=== PATIENT | male | born 1970 | race Caucasian/White ===

== ENCOUNTER 2016-04-21 00:30 | Emergency (ER) | payer OTHER ==
[~2016-04-21] VITALS: Ht 190.5 cm; Wt 92.0 kg
[~2016-04-21 00:30] MED LIST: ASPI-390 PO; BACL10TA PO; HYDR-5688 PO; MORP15TA PO; MORP15TA19 PO; MULT-506 PO; POLY335019 PO; PREG1CAP28 PO; PREG75CA PO; RIZA10TA18 PO; SERT-234 PO
[2016-04-21 00:41] VITALS: TEMP 36.9; Ht 190.5 cm; Wt 92.0 kg
[2016-04-21] MEDS ORDERED: LIDOCAINE HCL 2% VISC SOLN 20 ML UDC PO STA (00:58)
[2016-04-21] MEDS ORDERED: ALUMINUM/MAGNESIUM SUSP 30 ML UDC PO STA (00:58)
[2016-04-21 01:13] VITALS: O2SAT 100
[2016-04-21 01:24] LABS: BASO % 0.7 %; BASO ABS # 0.07 K/uL (0-0.2); COMPLETE YES; EOS % 5.3 %; HEMATOCRIT 43.9 % (42-52); IG% 0.2 %; LYMPH % 35.3 %; LYMPH ABS # 3.61 K/uL (1.2-3.4); MEAN CELL VOLUME 89.8 fL (80-100); MEAN CORPUSCULAR HEMOGLOBIN 31.1 pg (25-34); MEAN CORPUSCULAR HGB CONC 34.6 g/dl (32-36); MEAN PLATELET VOLUME 11.4 fL (7.4-10.4); MONO % 6.4 %; NEUT % 52.1 %; PLATELET COUNT 325 K/uL (130-400); RED BLOOD COUNT 4.89 M/uL (4.7-6.1); WHITE BLOOD COUNT 10.22 K/uL (4.8-10.8)
[2016-04-21 01:41] LABS: ALT/SGPT 28 U/L (12-78); AST/SGOT 15 U/L (15-37); BLOOD UREA NITROGEN 19 mg/dl (7-18); BUN/CREATININE RATIO 17.2 (10-20); CALCIUM 8.8 mg/dl (8.5-10.1); CARBON DIOXIDE 25 mmol/L (21-32); CHLORIDE 110 mmol/L (98-107); GLUCOSE 98 mg/dl (70-99); POTASSIUM 3.9 mmol/L (3.5-5.1); SODIUM 144 mmol/L (136-145)
[2016-04-21 01:46] LABS: ALKALINE PHOSPHATASE 78 U/L (45-117)
[2016-04-21] MEDS ORDERED: PANT40TA PO (03:42)
[2016-04-21] MEDS ORDERED: MAGNESIUM CITRATE 296 ML/BTL PO ONE (03:45)
--- NOTE | 2016-04-21 03:57 | EMERGENCY ROOM VISIT NOTE ---
History First contact with patient: 00:51 Chief Complaint: ABDOMINAL PAIN Stated Complaint: STOMACH/ABDOMINAL PAIN X 4WKS - MUCH WORSE NOW Nursing Triage Summary: Pt states he is on narcotics for back pain. Pt takes Miralax for regular bm's. Pt states that since he hasn't been going regular and he upped his Miralax. Pt states he now has upper abd pain with liquid bm's. [facility]. Pt states pain was not bad at that time and tonight it got more severe. History of Present Illness The patient is a 46 year old male who presents to the Emergency Room with complaints of epigastric discomfort for the past month described as aching, ranging in severity currently 5 out of 10. Patient tried Zantac with no improvement of symptoms. He has a history of constipation. He's been taking MiraLAX. He takes chronic narcotics for his back pain. Patient denies chest pain, dyspnea, fever, chills, nausea, vomiting, diarrhea, black or blood in the stool. Review of Systems See HPI for pertinent positives & negatives. A total of 10 systems reviewed and were otherwise negative. Past Medical/Surgical History Medical Problems: (1) Lumbar postlaminectomy syndrome Social History Smoking Status: Former Smoker Alcohol Use: occasionally Marital Status: single Housing Status: lives alone Occupation Status: disabled Current/Historical Medications Scheduled Baclofen (Lioresal), 10 MG PO BID Morphine Cont Rel (Ms Contin), 30 MG PO QAM Morphine Sulfate Ir (Morphine Sulfate Ir), 1.5 TABS PO QPM Multivitamin (Multivitamin), 1 TAB PO QAM Pantoprazole (Protonix), 40 MG PO DAILY Polyethylene Glycol 3350 (Miralax), 17 GM PO NOON Pregabalin (Lyrica), 75 MG PO QAM/NOON Pregabalin (Lyrica), 150 MG PO QPM Sertraline (Zoloft), 150 MG PO QAM Scheduled PRN Pomfnln-Vlzjefxcfqjqe-Xrytmoxk (Excedrin Migraine), 2 TABS PO UD PRN for Migraine Rizatriptan Benzoate (Maxalt), 10 MG PO for Migraine Allergies Coded Allergies: Prochlorperazine (Verified Allergy, Unknown, twitchy/ skin crawling, ) [place] (Verified Allergy, Unknown, SPLOTCHY RASH ON FACE, 04/21/16) Physical Exam Vital Signs Date Time Temp Pulse Resp B/P Pulse Ox O2 Delivery O2 Flow Rate FiO2 04/21/16 02:30 67 18 131/58 98 Room Air 04/21/16 01:15 74 04/21/16 01:13 100 Room Air 04/21/16 01:09 100 Room Air 04/21/16 00:41 36.9 80 18 145/89 98 Room Air Physical Exam VITALS: Vitals are noted on the nurse's note and reviewed by myself. Vital signs stable. GENERAL: Pleasant male, in no acute distress, nondiaphoretic, well-developed well-nourished. SKIN: The skin was without rashes, erythema, edema, or bruising. There is no tenting of the skin. Capillary reflex less than 2 seconds. HEAD: Normocephalic atraumatic. EARS: External auditory canals clear, tympanic membranes pearly aparicio without erythema or effusion bilaterally. EYES: Pupils equal round and reactive to light and accommodation. Conjunctivae without injection, sclerae without icterus. Extraocular movements intact. NOSE: Patent, turbinates without inflammation or discharge. MOUTH: Mucous membranes moist. Pharynx without erythema or exudate. Uvula midline. Airway patent. Tongue does not deviate. NECK: Supple without nuchal rigidity. No lymphadenopathy. No thyromegaly. Cervical spine is nontender. No JVD. HEART: Regular rate and rhythm without murmurs gallops or rubs. LUNGS: Clear to auscultation bilaterally without wheezes, rales or rhonchi. No dullness to percussion. No retractions or accessory muscle use. ABDOMEN: Positive bowel sounds x 4. Normal tympanic percussion. Soft, minimally tender to palpation epigastric area, no CVA tenderness, without masses or organomegaly. Larose sign negative. No guarding or rebound tenderness. MUSCULOSKELETAL: No muscle atrophy, erythema, or edema noted. NEURO: Patient was alert and oriented to person place and time. Normal sensation to light and sharp touch. No focal neurological deficits. Medical Decision & Procedures Laboratory Results 04/21/16 01:09 Red Blood Count 4.89, Mean Corpuscular Volume 89.8, Mean Corpuscular Hemoglobin 31.1, Mean Corpuscular Hemoglobin Concent 34.6, Mean Platelet Volume 11.4, Neutrophils (%) (Auto) 52.1, Lymphocytes (%) (Auto) 35.3, Monocytes (%) (Auto) 6.4, Eosinophils (%) (Auto) 5.3, Basophils (%) (Auto) 0.7, Neutrophils # (Auto) 5.33, Lymphocytes # (Auto) 3.61, Monocytes # (Auto) 0.65, Eosinophils # (Auto) 0.54, Basophils # (Auto) 0.07 04/21/16 01:09 Test 04/21/16 01:09 White Blood Count 10.22 K/uL (4.8-10.8) Red Blood Count 4.89 M/uL (4.7-6.1) Hemoglobin 15.2 g/dL (14.0-18.0) Hematocrit 43.9 % (42-52) Mean Corpuscular Volume 89.8 fL (80-100) Mean Corpuscular Hemoglobin 31.1 pg (25-34) Mean Corpuscular Hemoglobin Concent 34.6 g/dl (32-36) Platelet Count 325 K/uL (130-400) Mean Platelet Volume 11.4 fL (7.4-10.4) Neutrophils (%) (Auto) 52.1 % Lymphocytes (%) (Auto) 35.3 % Monocytes (%) (Auto) 6.4 % Eosinophils (%) (Auto) 5.3 % Basophils (%) (Auto) 0.7 % Neutrophils # (Auto) 5.33 K/uL (1.4-6.5) Lymphocytes # (Auto) 3.61 K/uL (1.2-3.4) Monocytes # (Auto) 0.65 K/uL (0.11-0.59) Eosinophils # (Auto) 0.54 K/uL (0-0.5) Basophils # (Auto) 0.07 K/uL (0-0.2) RDW Standard Deviation 46.9 fL (36.4-46.3) RDW Coefficient of Variation 14.2 % (11.5-14.5) Immature Granulocyte % (Auto) 0.2 % Immature Granulocyte # (Auto) 0.02 K/uL (0.00-0.02) Anion Gap 9.0 mmol/L (3-11) Est Creatinine Clear Calc Drug Dose 100.3 ml/min Estimated GFR () 92.8 Estimated GFR (Non- 80.1 BUN/Creatinine Ratio 17.2 (10-20) Calcium Level 8.8 mg/dl (8.5-10.1) Total Bilirubin 0.3 mg/dl (0.2-1) Direct Bilirubin < 0.1 mg/dl (0-0.2) Aspartate Amino Transf (AST/SGOT) 15 U/L (15-37) Alanine Aminotransferase (ALT/SGPT) 28 U/L (12-78) Alkaline Phosphatase 78 U/L (45-117) Total Creatine Kinase 74 U/L (39-308) Creatine Kinase MB < 0.5 ng/ml (0.5-3.6) Creatine Kinase MB Ratio (0-3.0) Troponin I < 0.015 ng/ml (0-0.045) Total Protein 7.8 gm/dl (6.4-8.2) Albumin 4.1 gm/dl (3.4-5.0) Lipase 162 U/L (73-393) Medications Administered Medications (Trade) Dose Ordered Sig/Ezekiel Route Start Time Stop Time Status Last Admin Dose Admin Lidocaine HCl (Viscous Lidocaine 2% Soln) 10 ml NOW STAT PO 04/21/16 00:58 04/21/16 01:00 DC 04/21/16 01:09 10 ML Al Hydroxide/Mg Hydroxide (Maalox Susp) 30 ml NOW STAT PO 04/21/16 00:58 04/21/16 01:00 DC 04/21/16 00:58 30 ML ED Course Prior records/ancillary studies reviewed. Triage Nursing notes reviewed. The patient's history was concerning for abdominal pain. Differential diagnosis: Etiologies such as appendicitis, diverticulitis, PUD, biliary pathology, UTI, pancreatitis, obstruction, mesenteric ischemia, aortic pathology, infections, inflammatory bowel disease, renal colic, as well as others were entertained. Physical examination findings: As above. ER treatment provided: GI cocktail On reassessment the patient felt better. Diagnostics interpreted by me: ECG: Normal sinus, normal intervals, no acute ST-T wave changes. Impression normal sinus rhythm interpreted by myself The labs revealed no worrisome leukocytosis or electrolyte abnormality. Negative troponin Imaging studies: Zofran was read by stat radiology negative for cholecystitis Acute abdominal series with no free air or consolidation or obstruction. Per my interpretation.. Exam and history seem consistent with possible gastritis and constipation. Patient was started on a PPI. He was advised to take magnesium citrate. [facility] and workup for his ongoing symptoms that have been ongoing for a month now. She had no lower abdominal pain on exam. He was well-appearing. He was tolerating by mouth fluids and ambulated without difficulties. He was advised to return to the ER immediately for abdominal pain, fevers, vomiting, worsening signs or symptoms or as needed.By the evaluation outlined above emergent etiologies such as appendicitis, diverticulitis, PUD, biliary pathology, UTI, pancreatitis, obstruction, mesenteric ischemia, aortic pathology, infections, inflammatory bowel disease, renal colic, as well as others were deemed relatively unlikely. The pt informed about the findings as listed above. All questions were answered and pleased with the treatment. Return instructions were outlined and the patient was discharged in stable condition. Outpatient prescription management: Protonix Referral: The patient was referred back to their primary care physician for follow-up in 2 to 3 days for a recheck of the current condition. Case reviewed with my attending Medical Decision As above Impression Primary Impression: Epigastric discomfort Additional Impression: Constipation Departure Information Dispostion Home / Self-Care Condition GOOD Prescriptions Pantoprazole (Protonix) 40 Mg Tab 40 MG PO DAILY for 14 Days, #14 TAB Prov: Blanka Magallanes .SERGEI 04/21/16 Forms Call Back Authorization, HOME CARE DOCUMENTATION FORM, IMPORTANT VISIT INFORMATION Patient Instructions Constipation, My [facility] Additional Instructions Magnesium citrate: Drink half the bottle when you get home, if you do not have a bowel movement within 6 hours then drink the rest. Stay near a toilet. Protonix 40 mg: Take one tablet daily for the next 2 weeks on an empty stomach. Acetaminophen(Tylenol) may be used for fever or pain. Use 1000mg every six hours as needed. Avoid using more than 3000mg in a 24 hour period. Rest and drink plenty of fluids as tolerated. Continue current medications. Avoid strenuous activities and anything that worsens your pain. Resume normal activities once your symptoms resolve. Return to the ER immediately for worsening or persistent abdominal pain, vomiting, fevers, chest pains, difficulty breathing, worsening of your condition , or as needed. Follow up with your primary physician in 2-3 days for a recheck of your current condition. Problem Qualifiers
[2016-04-21 04:05] VITALS: BP 122/60; PULSE 90; O2SAT 98
--- NOTE | 2016-04-21 07:44 | DIAGNOSTIC IMAGING REPORT ---
ABDOMINAL ULTRASOUND, RIGHT UPPER QUADRANT HISTORY: Epigastric pain.. COMPARISON: Abdomen and pelvis CT 05/29/2011. FINDINGS: Pancreas: The pancreatic tail is obscured by overlying bowel gas. The remaining portions of the pancreas are within normal limits. Liver: There is an 8 mm echogenic focus within the right hepatic dome. This favors a hemangioma but is technically indeterminate by ultrasound. The liver is mildly enlarged measuring 19 cm in length. Mild intrahepatic bile duct dilatation. Gallbladder: No gallbladder wall thickening. No gallstones. CBD: 7 mm in diameter. Right kidney: No hydronephrosis. There is a 6 mm stone within the lower pole. IMPRESSION: 1. Normal gallbladder. No gallstones. 2. Right-sided nephrolithiasis. No hydronephrosis. 3. An 8 mm echogenic focus within the right hepatic dome. This is technically indeterminate by ultrasound but favors a small hemangioma. 4. Hepatomegaly. 5. Mild intra and extra hepatic bile duct dilatation. Recommend correlation with LFTs to exclude an obstructive process. Electronically signed by: Cuco Patel M.D. 04/21/2016 7:42 AM Dictated Date/Time: 04/21/2016 7:38 AM
--- NOTE | 2016-04-21 08:12 | DIAGNOSTIC IMAGING REPORT ---
CHEST AND ABDOMEN 2 VIEWS HISTORY: Generalized abdominal pain. Small bowel obstruction. COMPARISON: Abdomen and pelvis CT 05/29/2011. FINDINGS: The lungs are clear. The cardiomediastinal silhouette is within normal limits. There is no pneumoperitoneum or pneumatosis. The bowel gas pattern is unremarkable. No evidence for bowel obstruction. Posterior fusion and decompression from L2 through S1. There is an 8 mm stone within the lower pole of the right kidney. No ureteral calculi. Large amount of well-formed stool seen throughout the colon and rectum. IMPRESSION: 1. No acute process within the chest. 2. Large amount of well-formed stool seen throughout the colon and rectum. 3. Right-sided nephrolithiasis. Electronically signed by: Cuco Patel M.D. 04/21/2016 8:10 AM Dictated Date/Time: 04/21/2016 8:07 AM
== END 2016-04-21 04:06 | disposition home or self-care (01) ==
LOC: C.EDB 00:31
DX: R10.13 Epigastric pain (principal); K59.00 Constipation, unspecified; Z87.891 Personal history of nicotine dependence

== ENCOUNTER 2017-05-02 15:54 | Emergency (ER) | payer OTHER ==
[~2017-05-02] VITALS: Ht 190.5 cm; Wt 98.0 kg
[~2017-05-02 15:54] MED LIST changes: -HYDR-5688 PO
[2017-05-02 16:05] VITALS: TEMP 36.7; Ht 190.5 cm; Wt 98.0 kg
[2017-05-02] MEDS ORDERED: SUMATRIPTAN SUCCINATE 6 MG/0.5 ML VIAL SQ STA (16:25)
[2017-05-02] MEDS ORDERED: ONDANSETRON 4MG OD TAB PO STA (16:25)
[2017-05-02] MEDS ORDERED: MORP-157 PO (16:39)
[2017-05-02] MEDS ORDERED: NALO1TAB2 PO (16:39)
[2017-05-02] MEDS ORDERED: ONDA4TAB10 SL (17:22)
[2017-05-02 17:37] VITALS: BP 129/85; PULSE 82; O2SAT 99
--- NOTE | 2017-05-03 20:29 | EMERGENCY ROOM VISIT NOTE ---
ED Visit Note First contact with patient: 16:11 CHIEF COMPLAINT: Migraine headache. HISTORY OF PRESENT ILLNESS: Mr. Lin is a 47 year-old white male who ambulates into the ED complaining of a migraine headache. He reports a gradual onset of a severe migraine headache that started approximately 8 hours ago. The pain is constant and it is slowly increasing in severity. This is not the worst headache of the life and is similar to previous migraines. Currently he describes the headache as a stabbing and throbbing sensation/pain in the right frontal area. He rates the pain a 9/10. The pain is nonradiating. He has not identified any aggravating or alleviating factors related to the pain. He reports taking his prescribed Maxalt and Excedrin migraine without relief of pain. There is been associated light sensitivity, nausea without vomiting. He denies fever, chills, sweats, skin eruptions, skin color changes, recent head trauma, upper respiratory tract symptoms, sinus pain/pressure, hearing changes, visual changes, difficulty speaking, difficulty swallowing, sore throat , voice changes, difficulty ambulating/coordinating body movements, neck pain/ stiffness, chest pain, shortness of breath, abdominal pain, extremity weakness/ numbness/tingling. REVIEW OF SYSTEMS: As noted above in History of Present Illness; all body systems were reviewed with the patient and found to be negative unless noted above otherwise. PAST MEDICAL HISTORY: Chronic migraine headaches, kidney stones, status post back surgery 4. CURRENT MEDICATIONS: Medications Dose Route/Sig Max Daily Dose Days Date Category Dose Instructions Zofran Odt (Ondansetron HCl) 4 Mg Tab 4 Mg SL Q6H 05/02/17 Rx Movantik (Naloxegol Oxalate) 25 Mg Tab 25 Mg PO DAILY 05/02/17 Reported Ms Contin (Morphine Sulfate) 15 Mg Tab 30 Mg PO QAM 05/02/17 Reported Lioresal (Baclofen) 10 Mg Tab 10 Mg PO BID PRN 10/27/15 Reported Miralax (Polyethylene Glycol 3350) 1 Pow Pow 17 Gm PO DAILY PRN 08/09/15 Reported Morphine Sulfate Ir (Morphine Sulfate) 15 Mg Tab 22.5 Mg PO QPM 05/12/14 Reported Excedrin Migraine (Ykhwvax-Ckqusbrydjcll-Lzumapap) 1 Tab Tab 2 Tabs PO UD PRN 04/27/14 Reported TAKE PER PACKAGE DIRECTIONS Maxalt (Rizatriptan Benzoate) 10 Mg Tab 10 Mg PO UD PRN 04/27/14 Reported Multivitamin (Multivitamins) Tab 1 Tab PO QAM 09/20/10 Reported ALLERGIES TO MEDICATIONS: Prochlorperazine. SOCIAL HISTORY: Patient is not employed; he reports he's a disabled ; he feels safe in his home environment; he admits to tobacco use and denies alcohol use. PHYSICAL EXAM: Vital Signs: Date Time Temp Pulse Resp B/P (MAP) Pulse Ox O2 Delivery O2 Flow Rate FiO2 05/02/17 17:37 82 18 129/85 99 05/02/17 16:05 36.7 78 18 126/80 98 Room Air GENERAL: 47 year-old white male in moderate distress due to pain, afebrile and hemodynamically stable. Found lying in a darkened room. NEUROLOGIC: Awake, alert and oriented to person place and time. Answering questions appropriately and following commands. Cranial nerves II-XII grossly intact. Pronator drift test negative. No focal neurologic deficits noted. SKIN: Warm, dry and pink. No rashes, lesions or soft tissue trauma noted. HEENT: Normocephalic, atraumatic. No tenderness or erythema over the maxillary or mandibular sinuses. External ears are nontender. Auditory canals are pink. Tympanic membranes are not erythematous or edematous. PERRLA. EOMI no nystagmus. Funduscopic examination was deferred due to light sensitivity. Oral cavity is moist and pink. Airway is patent. Uvula is midline and no abscesses were seen. . NECK: Soft and supple. No tenderness through the central cervical region or cervical musculature. No meningismus. Full range of motion of the cervical spine. No lymphadenopathy, jugular venous distention, or bruits noted. THORAX: Lungs clear to auscultation and equal bilaterally with no wheezing, crackles, rhonchi or stridor and equal chest wall movements. HEART: Regular rate and rhythm with no murmurs, rubs or gallops. ABDOMEN: Soft and nontender with bowel sounds present in all quadrants; no rigidity, rebound tenderness, organomegaly or guarding. MUSCULOSKELETAL: Full range of motion of all joints without any significant discomfort. Patient walks with a cane due to previous back surgeries. ED COURSE: Patient is assessed with history and physical examination. Patient's medication list was reviewed. Patient was given 6 mg of Imitrex subcutaneously and 4 mg of Zofran ODT. Patient was reassessed. Patient was educated about his condition and instructed on his treatment plan; he verbalized understanding and agreement with this plan. CLINICAL IMPRESSION: Migraine headache. DECISION MAKIN-year-old male who presents for evaluation of headache. He is afebrile, well appearing, and hemodynamically stable. He has no signs of a sinus, dental, or ear infection and no evidence of meningismus. He is neurologically intact. I do not suspect a headache to be secondary to a subarachnoid hemorrhage, meningitis, encephalitis, or intracranial mass lesion. DISPOSITION: Patient was discharged to home in stable condition: Prior to departure he was reassessed and subjectively reported that his pain was down to level of 3/10 and resolution of nausea. DISCHARGE INSTRUCTIONS: Rest at home, in a quiet darkened room and allow the medication to work for the pain. Continue to follow up current treatment plan prescribed by your physician for your migraine headaches. See your own doctor in follow-up this week for continued care and treatment. Return to the emergency department as needed for worsening/uncontrolled headaches, any abnormal neurological symptoms, fevers or any new/concerning symptoms.
== END 2017-05-02 17:33 | disposition home or self-care (01) ==
LOC: C.EDB 15:56 → C.EDD 17:33
DX: G43.909 Migraine, unspecified, not intractable, without status migrainosus (principal); Z87.442 Personal history of urinary calculi; Z79.899 Other long term (current) drug therapy

== ENCOUNTER 2017-07-30 16:44 | Observation (INO) | payer OTHER ==
[~2017-07-30] VITALS: Ht 190.5 cm; Wt 89.8 kg
[~2017-07-30 16:44] MED LIST changes: +MORP-157 PO; -MORP15TA19 PO; +NALO1TAB2 PO; +ONDA4TAB10 SL; -PREG1CAP28 PO; -PREG75CA PO; -SERT-234 PO
[2017-07-30] MEDS ORDERED: SODIUM CHLORIDE 0.9% 1000ML 1,000 ML IV SCH (17:05)
[2017-07-30] MEDS ORDERED: MORP1TAB11 PO (17:17)
[2017-07-30] MEDS ORDERED: RIZA10TA21 PO (17:17)
[2017-07-30] MEDS ORDERED: ONDA4TAB10 SL (17:19)
--- NOTE | 2017-07-30 17:27 | DIAGNOSTIC IMAGING REPORT ---
HEAD CT NONCONTRAST CT DOSE: 729.78 mGycm HISTORY: Migraine headache. Stroke TECHNIQUE: Multiaxial CT images of the head were performed without the use of intravenous contrast. Automated exposure control was utilized for this study. A dose lowering technique was utilized adhering to the principles of ALARA. Comparison: None. Findings: Mild mucosal thickening within the ethmoid air cells. No fluid levels within the paranasal sinuses. The mastoid air cells are clear. Bilateral basal ganglia calcifications. The calvarium and skull base are intact. The ventricles and sulci are within normal limits. There is no mass, hematoma, midline shift, or acute infarct. Impression: No acute intracranial abnormality. Electronically signed by: Cuco Patel M.D. 07/30/2017 5:26 PM Dictated Date/Time: 07/30/2017 5:19 PM
--- NOTE | 2017-07-30 17:56 | DIAGNOSTIC IMAGING REPORT ---
CHEST ONE VIEW PORTABLE CLINICAL HISTORY: Stroke mental status change COMPARISON STUDY: 04/21/2016 FINDINGS: The bones soft tissues and hemidiaphragms are normal. The cardiomediastinal silhouette is normal. The lungs are clear. The pulmonary vasculature is normal. IMPRESSION: Negative chest. The above report was generated using voice recognition software. It may contain grammatical, syntax or spelling errors. Electronically signed by: Tobi Crooks M.D. 07/30/2017 5:55 PM Dictated Date/Time: 07/30/2017 5:54 PM
[2017-07-30] MEDS ORDERED: PROMETHAZINE HCL INJ 12.5 MG in SODIUM CHLORIDE 0.9% 50ML 50 ML IV STA (17:57)
[2017-07-30] MEDS ORDERED: MAGNESIUM SULFATE 1GM / D5W 1 GM BAG IV STA (17:57)
[2017-07-30] MEDS ORDERED: KETOROLAC TROMETHAMINE 30 MG/ML VIAL IV STA ×2 (17:57→21:24)
[2017-07-30 18:07] LABS: CALCIUM 9.3 mg/dl (8.5-10.1); CREATININE 1.3 mg/dl (0.60-1.40); POTASSIUM 4.2 mmol/L (3.5-5.1)
[2017-07-30 18:11] LABS: BASO % 0.1 %; BASO ABS # 0.02 K/uL (0-0.2); HEMATOCRIT 45.6 % (42-52); HEMOGLOBIN 15.5 g/dL (14.0-18.0); IG# 0.04 K/uL (0.00-0.02); LYMPH % 5.6 %; LYMPH ABS # 0.94 K/uL (1.2-3.4); MEAN CELL VOLUME 89.6 fL (80-100); MEAN CORPUSCULAR HEMOGLOBIN 30.5 pg (25-34); MEAN PLATELET VOLUME 10.5 fL (7.4-10.4); MONO % 2.8 %; MONO ABS # 0.47 K/uL (0.11-0.59); NEUT % 91.3 %; NEUT ABS # 15.23 K/uL (1.4-6.5); PLATELET COUNT 324 K/uL (130-400); RED CELL DISTRIBUTION WIDTH CV 14.4 % (11.5-14.5)
[2017-07-30 18:19] LABS: INR 0.9 (0.9-1.1); PTT PATIENT 25.2 SECONDS (21.0-31.0)
[2017-07-30] MEDS ORDERED: LIDO/EPINEPHRINE/SOD BICARB 20 ML VIAL INFIL ONE (18:26)
[2017-07-30] MEDS ORDERED: CEFTRIAXONE SOD INJ 1 GM ADDVIAL IV STA (18:47)
[2017-07-30] MEDS ORDERED: CEFTRIAXONE SOD INJ 2000 MG in DEXTROSE 5% 50ML IV ONE (19:00)
[2017-07-30 19:16] LABS: CSF GLUCOSE 87 mg/dl (40-70); CSF TOTAL PROTEIN 31.6 mg/dl (15.0-45.0)
--- NOTE | 2017-07-30 20:08 | EMERGENCY ROOM VISIT NOTE ---
History Report prepared by Nani: German Caceres Under the Supervision of: Dr. Bossman Mckeon M.D. First contact with patient: 16:52 Chief Complaint: HEADACHE Stated Complaint: MIGRAINE History of Present Illness The patient is a 47 year old male who presents to the Emergency Room with complaints of a constant stabbing right sided headache starting this morning. The patient additionally notes that he has been having difficulty pressing buttons, he vomited this morning, and he notes that his right arm has been dropping when he tries to raise it possibly from arthritis in his right shoulder for the past month. He denies any fever. The patient states that he took Maxalt today for the pain, and it has not helped at all. He has a history of migraines for the past 20 years, and he usually takes triptan for his pain which helps. The patient reports that his last migraine that was this bad was in April when he came to the ED. He states that he has had no recent falls. The patient states that he currently takes morphine for his back pain. He states that he did not take too much morphine today. He states he is very careful about this. He states he does not want to become a "junkie." Source of History: patient Onset: this morning Position: head Quality: stabbing Timing: constant Associated Symptoms: + vomiting, No fevers Review of Systems See HPI for pertinent positives & negatives. A total of 10 systems reviewed and were otherwise negative. Past Medical & Surgical Medical Problems: (1) Lumbar postlaminectomy syndrome Family History Cancer Social History Smoking Status: Current Every Day Smoker Alcohol Use: occasionally Marital Status: single Housing Status: lives alone Occupation Status: disabled Current/Historical Medications Scheduled Morphine Sulfate (Morphine Sulfate Er), 30 MG PO QAM Morphine Sulfate Ir (Morphine Sulfate Ir), 22.5 MG PO QPM Multivitamin (Multivitamin), 1 TAB PO QAM Naloxegol Oxalate (Movantik), 25 MG PO DAILY Scheduled PRN Rsjdmox-Sklttbvgmaxej-Wmboabuo (Excedrin Migraine), 2 TABS PO UD PRN for Migraine Baclofen (Lioresal), 10 MG PO BID PRN for Muscle Spasm Ondasetron Odt (Zofran Odt), 4 MG SL Q6H PRN for Nausea Polyethylene Glycol 3350 (Miralax), 17 GM PO DAILY PRN for Constipation Rizatriptan Benzoate (Rizatriptan Benzoate), 10 MG PO UD PRN for Migraine Allergies Coded Allergies: Prochlorperazine (Verified Allergy, Unknown, twitchy/ skin crawling, ) Fenton (Verified Allergy, Unknown, SPLOTCHY RASH ON FACE, 04/21/16) Physical Exam Vital Signs Date Time Temp Pulse Resp B/P (MAP) Pulse Ox O2 Delivery O2 Flow Rate FiO2 07/30/17 18:47 87 18 116/59 95 07/30/17 18:13 84 18 123/93 98 Room Air 07/30/17 17:12 97 Room Air 07/30/17 16:52 82 07/30/17 16:51 37.5 77 20 138/86 97 Room Air Physical Exam Constitutional: Vital signs reviewed. Eyes: Pupils are equal round reactive to light. Conjunctiva are noninjected. ENT: Pharynx is clear without erythema or exudate. Mucous membranes are moist. Neck supple without meningeal signs. Respiratory: Clear to auscultation bilaterally. Breath sounds are equal bilaterally. Cardiovascular: Regular rate and rhythm. No rubs or gallops. GI: Soft, nondistended and nontender. Bowel sounds are present. Musculoskeletal: No peripheral edema. No lower extremity tenderness. Integumentary: No cyanosis. Neurological: Drowsy. Follows most commands. Will hold his arms out and then drop either one randomly. He does move all extremities. Sensation is intact throughout. Cranial nerves are grossly intact. He will not open his mouth, stick out his tongue or raise his soft palate. Psychiatric: Unable to assess. Medical Decision & Procedures ER Provider Diagnostic Interpretation: Radiology results as stated below per my review and the radiologist's interpretation: HEAD CT NONCONTRAST CT DOSE: 729.78 mGycm HISTORY: Migraine headache. Stroke TECHNIQUE: Multiaxial CT images of the head were performed without the use of intravenous contrast. Automated exposure control was utilized for this study. A dose lowering technique was utilized adhering to the principles of ALARA. Comparison: None. Findings: Mild mucosal thickening within the ethmoid air cells. No fluid levels within the paranasal sinuses. The mastoid air cells are clear. Bilateral basal ganglia calcifications. The calvarium and skull base are intact. The ventricles and sulci are within normal limits. There is no mass, hematoma, midline shift, or acute infarct. Impression: No acute intracranial abnormality. Electronically signed by: Cuco Patel M.D. 07/30/2017 5:26 PM Dictated Date/Time: 07/30/2017 5:19 PM CHEST ONE VIEW PORTABLE CLINICAL HISTORY: Stroke mental status change COMPARISON STUDY: 04/21/2016 FINDINGS: The bones soft tissues and hemidiaphragms are normal. The cardiomediastinal silhouette is normal. The lungs are clear. The pulmonary vasculature is normal. IMPRESSION: Negative chest. The above report was generated using voice recognition software. It may contain grammatical, syntax or spelling errors. Electronically signed by: Tobi Crooks M.D. 07/30/2017 5:55 PM Dictated Date/Time: 07/30/2017 5:54 PM Laboratory Results 07/30/17 18:00 Red Blood Count 5.09, Mean Corpuscular Volume 89.6, Mean Corpuscular Hemoglobin 30.5, Mean Corpuscular Hemoglobin Concent 34.0, Mean Platelet Volume 10.5, Neutrophils (%) (Auto) 91.3, Lymphocytes (%) (Auto) 5.6, Monocytes (%) (Auto) 2.8, Eosinophils (%) (Auto) 0.0, Basophils (%) (Auto) 0.1, Neutrophils # (Auto) 15.23, Lymphocytes # (Auto) 0.94, Monocytes # (Auto) 0.47, Eosinophils # (Auto) 0.00, Basophils # (Auto) 0.02 07/30/17 17:35 Test 07/30/17 17:35 07/30/17 18:00 07/30/17 18:40 07/30/17 19:31 Anion Gap 7.0 mmol/L (3-11) Est Creatinine Clear Calc Drug Dose 84.0 ml/min Estimated GFR () 75.3 Estimated GFR (Non- 65.0 BUN/Creatinine Ratio 11.8 (10-20) Calcium Level 9.3 mg/dl (8.5-10.1) Troponin I < 0.015 ng/ml (0-0.045) White Blood Count 16.70 K/uL (4.8-10.8) Red Blood Count 5.09 M/uL (4.7-6.1) Hemoglobin 15.5 g/dL (14.0-18.0) Hematocrit 45.6 % (42-52) Mean Corpuscular Volume 89.6 fL (80-100) Mean Corpuscular Hemoglobin 30.5 pg (25-34) Mean Corpuscular Hemoglobin Concent 34.0 g/dl (32-36) Platelet Count 324 K/uL (130-400) Mean Platelet Volume 10.5 fL (7.4-10.4) Neutrophils (%) (Auto) 91.3 % Lymphocytes (%) (Auto) 5.6 % Monocytes (%) (Auto) 2.8 % Eosinophils (%) (Auto) 0.0 % Basophils (%) (Auto) 0.1 % Neutrophils # (Auto) 15.23 K/uL (1.4-6.5) Lymphocytes # (Auto) 0.94 K/uL (1.2-3.4) Monocytes # (Auto) 0.47 K/uL (0.11-0.59) Eosinophils # (Auto) 0.00 K/uL (0-0.5) Basophils # (Auto) 0.02 K/uL (0-0.2) RDW Standard Deviation 47.0 fL (36.4-46.3) RDW Coefficient of Variation 14.4 % (11.5-14.5) Immature Granulocyte % (Auto) 0.2 % Immature Granulocyte # (Auto) 0.04 K/uL (0.00-0.02) Prothrombin Time 9.9 SECONDS (9.0-12.0) Prothromb Time International Ratio 0.9 (0.9-1.1) Activated Partial Thromboplast Time 25.2 SECONDS (21.0-31.0) Partial Thromboplastin Ratio 1.0 CSF Color COLORLESS CSF Appearance CLEAR CSF WBC 1 /uL (0-5) CSF RBC 0 /uL (0) CSF Xanthrochromic NO XANTHOCHROMIA CSF Cell Count Tube # 4 CSF Chemistry Tube # 2 CSF Glucose 87 mg/dl (40-70) CSF Total Protein 31.6 mg/dl (15.0-45.0) Test 07/30/17 19:56 Laboratory results as reviewed by me. Medications Administered Medications (Trade) Dose Ordered Sig/Ezekiel Route Start Time Stop Time Status Last Admin Dose Admin Sodium Chloride 1,000 ml @ 50 mls/hr Q20H IV 07/30/17 17:05 5/23/18 17:04 07/30/17 18:06 50 MLS/HR Magnesium Sulfate (Magnesium Sulfate 1gm / D5W) 1 gm NOW STAT IV 07/30/17 17:57 07/30/17 17:58 DC 07/30/17 18:07 1 GM Promethazine HCl 12.5 mg/Sodium Chloride 50.5 ml @ 204 mls/hr NOW STAT IV 07/30/17 17:57 07/30/17 18:11 DC 07/30/17 18:12 204 MLS/HR Ketorolac Tromethamine (Toradol Inj) 10 mg NOW STAT IV 07/30/17 17:57 07/30/17 17:58 DC 07/30/17 18:06 10 MG Procedure Lumbar Puncture Indication: severe headache and altered mental status. Verbal consent was obtained after the risks and benefits were explained, including but not limited to headache, bleeding/clotting, scarring, infection, pain, and bone/joint/nerve damage. At this time, the risks of the procedure are less than the risks of NOT performing the procedure. A time out was taken and the correct patient and site identified. The patient was placed in the sitting up position and the back was prepped with betadine and draped in the standard fashion. The L3 intervertebral space was identified, anesthetized locally with 1 % lidocaine without epinephrine, and the spinal needle was inserted through the skin with the bevel parallel to the dural fibers. The needle was carefully advanced into the lumbar cistern and 4 tubes of clear CSF was obtained. The stylet was replaced and the needle was removed. A bandaid was placed and the patient was placed in the supine position. The patient tolerated the procedure well and there were no complications. ECG Per My Interpretation Indication: other (neuro symptoms) Rate (beats per minute): 78 Rhythm: normal sinus Findings: other (No ST elevation. No PVC) ED Course 1651: The patient was evaluated in room B12. A complete history and physical exam was performed. 1705: Sodium Chloride 1000 ml @ 50 mls/hr IV 1725: The nurse states that he forgot to tell us that he hit his head today while sleep walking. 174: I reevaluated the patient, and he was awake and alert. He gave a coherent story, and he thinks that he fell in the bathroom after he got up and his legs were wobbly, and he fell and hit his head. He is now able to follow commands and speak in full sentences but is very anxious. He also said that he is not allergic to Phenergan. 1756: Toradol 10mg IV, Promethazine HCl 12.5mg/ Sodium Chloride 50.5 @ 204mls/ hr IV, Magnesium Sulfate 1gm IV 1807: I discussed that his white blood cell count was elevated, and I recommended a lumbar puncture to evaluate for meningitis or a brain bleed. I discussed risks and benefits, and he agreed to the lumbar puncture. 1825: He states that his headache was feeling a little better. I performed the lumbar puncture as described above. I ordered Buffered Xylocaine/ Epinephrine 1 % 20ml INFIL 1899: Ceftriaxone Sodium 2000mg/ Dextrose 70ml @ 140mls/hr IV 1913: I spoke with Dr. Drew Kent Hospitalist. We discussed the patient and her results. The patient will be further evaluated by the hospitalist. 1914: i reevaluated the patient, and he states that he feels better. He states that he is doing okay, and then he starts moaning. I recommended hospitalization due to his altered mental status, and he was agreeable. Medical Decision This is a 47-year-old male who presents with change in mental status and headache. Differential diagnosis includes migraine headache, intracranial mass , intracranial hemorrhage, subarachnoid hemorrhage, meningitis, encephalitis, metabolic derangement. I did perform a limited focused review of portions of the patient's old chart on the electronic medical record. The patient was here for a migraine on May 02. He was given Imitrex and Zofran. I did evaluate the patient as noted above. The patient has a history of migraine headaches and states that he has a similar migraine today but he is acting somewhat bizarrely in the emergency department. He will repeat himself several times and not follow commands. He does not have the smell of alcohol on his breath. The patient was placed on a continuous monitoring specialist. I did treat him with Phenergan, normal saline and magnesium IV. He was given Benadryl IV in the ambulance prior to arrival. I did order and personally review the patient's 12-lead EKG and chest x-ray as described above. I did order and review the patient's blood work as noted in the electronic medical record. His white count is almost 17,000. He later tells me that he hit his head while going to bathroom last night. Because of his bizarre behavior and history of trauma, I did order a CT of the head. I did review the images myself as well as the radiology report as described above. There is no evidence of acute intracranial hemorrhage. I did discuss the test results with the patient. He is more coherent at this time. He was able to call his sister and leave a message for her. He is somewhat emotional but is able to speak in full sentences and follow commands appropriately. He is no longer drowsy. He I did recommend lumbar puncture with the patient. I did discuss risks and benefits with him. He was able to reiterate potential risks and states that he has had a lumbar puncture in the past. I did perform lumbar puncture as described above. It was uneventful without any complications. He was given Rocephin IV after lumbar puncture. CSF results show no evidence of subarachnoid hemorrhage or meningitis. Gram stain was negative for any organisms. I did discuss the test results with him. He does state he is feeling better but still seems rather emotional at times although much more coherent than he was when he initially came in. I did recommend hospitalization for further evaluation. I did discuss the case with the hospitalist and returned case inspector. Head Trauma GCS Score: 14 Medication Reconcilliation Current Medication List: was personally reviewed by me Blood Pressure Screening Patient's blood pressure: Elevated blood pressure Monitored by the hospitalist Consults Time Called: 1909 Consulting Physician: Dr. Drew Kent Hospitaljie Returned Call: [address] Drew Kent Hospitaljie. We discussed the patient and her results. The patient will be further evaluated by the hospitalist. Impression Primary Impression: Acute headache Additional Impression: Change in mental status Scribe Attestation The scribe's documentation has been prepared under my direct and personally reviewed by me in its entirety. I confirm that the note above accurately reflects all work, treatment, procedures, and medical decision making performed by me. Departure Information Dispostion Being Evaluated By Hospitalist Referrals No Doctor, Assigned (PCP) Patient Instructions [facility] Problem Qualifiers Primary Impression: Acute headache Headache type: unspecified Additional Impression: Change in mental status Altered mental status type: unspecified Qualified Codes: R41.82 - Altered mental status, unspecified
[2017-07-30] MEDS ORDERED: ASPIRIN 81 MG ECTAB PO STA (20:27)
[2017-07-30] MEDS ORDERED: ONDANSETRON INJ 2 MG/ML 2 ML VIAL IV PRN ×2 (20:45→21:00)
[2017-07-30] MEDS ORDERED: SODIUM CHLORIDE 0.9% 1000ML 1,000 ML IV ONE (20:45)
[2017-07-30] MEDS ORDERED: DEXAMETHASONE INJ 10 MG in SYRINGE 0 ML IV ONE (20:45)
[2017-07-30] MEDS ORDERED: ACETAMINOPHEN 325 MG TAB PO PRN (20:45)
[2017-07-30] MEDS ORDERED: IBUPROFEN 200 MG TAB PO PRN (20:45)
[2017-07-30] MEDS ORDERED: LORAZEPAM 2 MG/ML 1 ML VIAL IV PRN (20:45)
[2017-07-30] MEDS ORDERED: NITROGLYCERIN 0.4 MG SL PER TAB CHARGE SL PRN (20:45)
[2017-07-30] MEDS ORDERED: TRAMADOL HCL 50 MG TAB PO PRN (20:45)
[2017-07-30] MEDS ORDERED: DEXAMETHASONE **PF** INJ 10 MG/ML VIAL ONE (20:52)
[2017-07-30] MEDS ORDERED: MoRPHine SULFATE IR 15 MG TAB (IMMEDIATE RELEASE) PO ONE (21:00)
[2017-07-30] MEDS ORDERED: POLYETHYLENE (MIRALAX) 17 GM PACK PO PRN (21:00)
[2017-07-30] MEDS ORDERED: BACLOFEN 10 MG TAB PO PRN (21:00)
[2017-07-30] MEDS ORDERED: RIZATRIPTAN BENZOATE 10 MG TAB PO PRN (21:00)
[2017-07-30] MEDS ORDERED: LORAZEPAM 2 MG/ML 1 ML VIAL ONE (21:25)
[2017-07-30] MEDS ORDERED: KETOROLAC TROMETHAMINE 15 MG/ML VIAL ONE (21:26)
[2017-07-30 21:32] LABS: ALBUMIN 4.4 gm/dl (3.4-5.0); ALKALINE PHOSPHATASE 76 U/L (45-117); ALT/SGPT 41 U/L (12-78); AST/SGOT 28 U/L (15-37); TOTAL PROTEIN 8.6 gm/dl (6.4-8.2)
--- NOTE | 2017-07-30 21:50 | HISTORY & PHYSICAL EXAMINATION ---
DATE OF ADMISSION: 07/30/2017 PRIMARY CARE DOCTOR: Dr. Cano CHIEF COMPLAINT: Headache, fall. HISTORY OF PRESENT ILLNESS: History obtained from patient and records. Medical history significant for chronic pain on narcotics, anxiety disorder, not on meds, hyperlipidemia, hx kidney stones, ongoing tobacco abuse, migraine. Patient had migraine since his teens. The the last 3 years patient noted worsening of migraine headaches occurring without usual precipitants. Usual description of right-sided headaches with occasional aura with nausea about 3-4 times a week. Some relief with p.r.n. migraine medication. He was referred by his PCP to [facility] neurologist last week. MRI contemplated if patient could get over his claustrophobia, possible initiation of Propranolol, consideration for Botox tx as per outpatient notes. Over the weekend, patient had worsening migraine headache. Fell down this a.m because of headache and being "fuzzy." No passing out. Patient called out for help. Transient right upper extremity weakness. Shooting neck pain No fever, no chills. Brought to Emergency Room. LP done at the ER. Patient currently feeling a little better. MEDICAL HISTORY: As above. Past history intrathecal pain pump under supervision [facility]. Patient has reservations about going back to department for services. SURGERIES: Back surgery. HOME MEDICATIONS: Include baclofen and morphine sulfate, morphine ER, Movantik, sertraline. ALLERGIES: COMPAZINE. FAMILY HISTORY: Breast cancer. Stroke PERSONAL AND SOCIAL HISTORY: One pack daily. No chronic EtOH intake, disabled , past history service REVIEW OF SYSTEMS: As per HPI, all 10 systems reviewed, all other ROS negative. PHYSICAL EXAMINATION: VITAL SIGNS: Blood pressure was noted to be 138/86, pulse rate noted to be 76, RR 18, sats 98 on room air. GENERAL: Noted to be uncomfortable, loquacious, occasional tangentiality/ expansiveness in speech content. SKIN: Normal color, warm HEENT : [place] palpebral conjunctivae, no ptosis, dry buccal mucosa. NECK: Supple, nontender. CHEST: CTA, no tenderness. HEART: RRR, no murmur. ABDOMEN: Some distention, non tender. EXTREMITIES: Some bruising on the right forearm. No other gross deformities NE : Coherent, no facial symmetry, equal MMTS. (patient would actually use his right upper extremity to reach for silence button of his IV infusion pump) Gait and stance not assessed LABORATORIES: Hemoglobin was 15.5, WBC 16, platelets 200. Sodium 140, potassium 4.2, Glucose at 129. CT head, no acute pathology. Chest x-ray negative. EKG as per my interpretation, rate 80, NSR, no ischemia. CSF clear,colorless, WBC 1, glucose 86, normal protein ASSESSMENT: 1. Intractable migraine headache 2. Transient RUE weakness TIA versus complicated migraine 3. fall, disorientation possibly from home medications 4. ongoing tobacco abuse 5. chronic pain on narcotics. 6, hyperglycemia ro DM PLAN: Observation PCU, neuro checks Analgesia, judicious narcotic use Decadron trial for migraine Initiate propranolol for migraine prophylaxis as per outpatient Neurology recommendations ASA for now until stroke ruled out. MRI brain. RE worsening headache Further management of headache as per [facility] Neurology. Check urine toxicology, serum alcohol labs Check hemoglobin A1c nicotine patch. Full code. ADDENDUM : MRI brain no stroke Transfer from PCU to medical floor. DC aspirin for stroke prophylaxis. MTDD
[2017-07-30] MEDS ORDERED: GADAVIST IV PRN (22:30)
--- NOTE | 2017-07-30 22:40 | DIAGNOSTIC IMAGING REPORT ---
Brain MRI WITH AND WITHOUT CONTRAST HISTORY: Headache. TECHNIQUE: Multiplanar multisequence MRI of the brain was performed both before and after the intravenous administration of contrast. COMPARISON STUDY: Head CT 07/30/2017. FINDINGS: Motion artifact. Small retention cysts within the maxillary sinuses and mild mucosal thickening within the ethmoid air cells. The There are no areas of restricted diffusion to suggest acute infarction. The midline structures are intact. The mastoid air cells are clear. The ventricles and sulci are within normal limits for age. There is no mass, hematoma, midline shift. The major vascular flow-voids at the skull base are well maintained. Postcontrast sequences show no areas of abnormal enhancement. A few scattered punctate foci of T2 hyperintensity seen within the white matter. IMPRESSION: 1. Motion artifact. No definite acute intracranial abnormality. 2. A few scattered punctate foci of T2 hyperintensity seen within the white matter of the supratentorial brain. These are nonspecific but can be seen the setting of migraines, minimal microvascular ischemic change, or less likely a demyelinating disease or Lyme's disease. Electronically signed by: Cuco Patel M.D. 07/30/2017 10:39 PM Dictated Date/Time: 07/30/2017 10:34 PM
--- NOTE | 2017-07-30 22:44 | DIAGNOSTIC IMAGING REPORT ---
Brain MRA HISTORY: Headache. TECHNIQUE: 3-D [id number] MRA of the brain was performed without contrast. COMPARISON STUDY: None. FINDINGS: Motion artifact resulting in suboptimal evaluation. The visualized intracranial internal carotid arteries and distal vertebral arteries are patent. 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 The right P1 segment is hypoplastic. The bilateral [place] are primarily fed through the bilateral posterior communicating arteries and appear to be patent. The visualized bilateral ACAs and MCAs are patent. No significant stenosis or aneurysm identified. IMPRESSION: Motion artifact. However, no definite stenosis, occlusion, or aneurysm within the [place]. 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 Electronically signed by: Cuco Patel M.D. 07/30/2017 10:43 PM Dictated Date/Time: 07/30/2017 10:39 PM
[2017-07-30 22:48] VITALS: BP 146/81; PULSE 88; TEMP 37.5; O2SAT 96; Ht 190.5 cm; Wt 89.8 kg
[2017-07-30] MEDS ORDERED: PROPRANOLOL HCL 60 MG LA CAP PO ONE (22:52)
[2017-07-31 00:27] VITALS: BP 124/63; PULSE 88; TEMP 37.5; O2SAT 95
[2017-07-31] MEDS: ENOXAPARIN 30 MG/0.3 ML SYR SC SCH (05:33)
[2017-07-31 07:03] VITALS: BP 113/70; PULSE 78; TEMP 36.8; O2SAT 96
[2017-07-31 07:08] LABS: HEMATOCRIT 40.5 % (42-52); HEMOGLOBIN 13.7 g/dL (14.0-18.0); IG# 0.03 K/uL (0.00-0.02); LYMPH % 9.2 %; LYMPH ABS # 1.13 K/uL (1.2-3.4); MEAN CELL VOLUME 89.6 fL (80-100); MEAN CORPUSCULAR HEMOGLOBIN 30.3 pg (25-34); MEAN CORPUSCULAR HGB CONC 33.8 g/dl (32-36); MEAN PLATELET VOLUME 10.6 fL (7.4-10.4); MONO % 3.1 %; MONO ABS # 0.38 K/uL (0.11-0.59); NEUT % 87.5 %; NEUT ABS # 10.68 K/uL (1.4-6.5); PLATELET COUNT 305 K/uL (130-400); RED CELL DISTRIBUTION WIDTH CV 14.5 % (11.5-14.5); RED CELL DISTRIBUTION WIDTH SD 47.3 fL (36.4-46.3); WHITE BLOOD COUNT 12.22 K/uL (4.8-10.8)
[2017-07-31 08:00] VITALS: O2SAT 96
[2017-07-31] MEDS: MULTIVITAMIN TAB PO SCH (08:46)
[2017-07-31] MEDS: NICOTINE 21 MG/24 HR TDSY TD SCH (08:48)
[2017-07-31] MEDS ORDERED: ASPIRIN 81 MG ECTAB PO SCH (09:00)
[2017-07-31] MEDS ORDERED: MoRPHine SULFATE CR 15 MG TAB (MS CONTIN) PO SCH (09:00)
[2017-07-31] MEDS ORDERED: MAGNESIUM CITRATE 296 ML/BTL PO PRN (12:00)
--- NOTE | 2017-07-31 13:44 | Neurology Consultation ---
Neurology Consultation Date of Consultation: Jul 31, 2017. Attending Physician: Rama Hodge D.O. Primary Care Physician: No Doctor, Assigned Reason for Consultation: headache History of Present Illness Source: patient Chuck is a 47 year old male who has a PMH chronic pain on narcotics, anxiety disorder, DL, hx kidney stones, ongoing tobacco abuse, migraine which started in his teens. He saw Dr Rosenberg in neurology 07/27/2017. He has had worsening of migraine headaches in the past 3 years. He has right sided headaches with occasional aura with nausea about 3-4 times a week. He descibes them as stabbing non pounding headaches. Maxalt usually relieves but prior to this hospitalization he woke with a headache, took the Maxalt and vomited 3 x. He was in the bathroom and stood up and hit the right side of his head and his right arm. The plan was to obtain a CT head but he had to come to the hospital today. He had some weakness in his UE and some shaking but no LOC. He also had some shooting pain from his neck to the occiput of his skull on the right. In the ED he had an LP which had no Xanthochromia. He states the headache is much better. It is there but no longer sharp and stabbing. denies CP, SOB,abdominal pain, one sided weakness, numbness tingling, N, V, vision changes. He had back surgery years ago for a lipoma which is what started his back pain. Past Medical/Surgical History Medical Problems: (1) Acute exacerbation of chronic low back pain Status: Acute (2) Acute headache Status: Acute (3) Change in mental status Status: Acute (4) Constipation Status: Acute (5) Epigastric discomfort Status: Acute Social History Smoking Status: Current every day smoker Marital Status: single Housing Status: lives alone Occupation Status: disabled Allergies Coded Allergies: Prochlorperazine (Verified Allergy, Unknown, twitchy/ skin crawling, ) [place] (Verified Allergy, Unknown, SPLOTCHY RASH ON FACE, 04/21/16) Current Inpatient Medications Current Inpatient Medications Medications (Trade) Dose Ordered Sig/Ezekiel Route Start Time Stop Time Status Last Admin Dose Admin Morphine Sulfate (MoRPHine SULFATE IR TAB) 22.5 mg QPM PO 07/31/17 21:00 08/14/17 20:59 Enoxaparin Sodium (Lovenox Inj) 30 mg Q24H SC 07/31/17 06:00 08/30/17 05:59 07/31/17 05:33 30 MG Acetaminophen (Tylenol Tab) 650 mg Q4H PRN PO 07/30/17 20:45 08/29/17 20:44 Nitroglycerin (Nitrostat Tab) 0.4 mg UD PRN SL 07/30/17 20:45 08/29/17 20:44 Lorazepam (Ativan Inj) 0.5 mg Q1H PRN IV 07/30/17 20:45 08/29/17 20:44 Nicotine (Nicoderm Cq 21MG Patch) 1 patch QAM TD 07/31/17 09:00 08/30/17 08:59 Tramadol HCl (Ultram Tab) `20-50 MG tabs for pain 25... Q6H PRN PO 07/30/17 20:45 08/29/17 20:44 Ketorolac Tromethamine (Toradol Inj) 15 mg Q6H PRN IV. 07/31/17 23:00 08/05/17 22:59 Ibuprofen (Advil Tab) 400 mg Q6H PRN PO 07/30/17 20:45 08/29/17 20:44 Miscellaneous (Remove Nicoderm Patch) 1 ea HS N/A 07/31/17 21:00 08/30/17 20:59 Baclofen (Lioresal Tab) 10 mg BID PRN PO 07/30/17 21:00 08/29/17 20:59 Multivitamins (Multivitamin Tab) 1 tab QAM PO 07/31/17 09:00 08/30/17 08:59 07/31/17 08:46 1 TAB Rizatriptan Benzoate (Maxalt Tab) 10 mg DAILY PRN PO 07/30/17 21:00 08/29/17 20:59 Miscellaneous Information (Order Awaiting Action) 1 ea QS N/A 07/31/17 00:00 08/30/17 00:00 Polyethylene (Miralax Powder Packet) 17 gm DAILY PRN PO 07/30/17 21:00 08/29/17 20:59 Ondansetron HCl (Zofran Inj) 4 mg Q6H PRN IV 07/30/17 21:00 08/29/17 20:59 Gadobutrol (Gadavist) 9 mmol UD PRN IV 07/30/17 22:30 08/03/17 22:29 Propranolol HCl (Inderal La Cap) 60 mg HS PO 07/31/17 21:00 08/30/17 20:59 Morphine Sulfate (Oramorph Sr Tab) 30 mg DAILY@0700 PO 08/01/17 07:00 08/15/17 06:59 Magnesium Citrate (Citrate Of Magnesia Soln) 150 ml DAILY PRN PO 07/31/17 12:00 08/30/17 11:59 07/31/17 12:55 150 ML Physical Exam Vital Signs (Past 24 Hrs): Date Time Temp Pulse Resp B/P (MAP) Pulse Ox O2 Delivery O2 Flow Rate FiO2 07/31/17 08:00 96 Room Air 07/31/17 07:03 36.8 78 18 113/70 (84) 96 Room Air 07/31/17 00:27 37.5 88 20 124/63 (83) 95 Room Air 07/30/17 23:59 Room Air 07/30/17 22:48 37.5 88 18 146/81 96 Room Air 07/30/17 21:04 87 18 126/95 97 07/30/17 20:31 159/77 07/30/17 20:01 156/83 07/30/17 20:00 89 20 07/30/17 19:31 144/72 07/30/17 19:30 76 13 07/30/17 18:47 87 18 116/59 95 07/30/17 18:13 84 18 123/93 98 Room Air 07/30/17 17:12 97 Room Air 07/30/17 16:52 82 07/30/17 16:51 37.5 77 20 138/86 97 Room Air Physical Exam: Constitutional: appearance nourished, healthy and normal Ears, Nose, Mouth and Throat: mucous membranes moist, no injection and skin normal, eyes normal Cardiovascular: normal S-1 and S-2 and regular rate and rhythm Respiratory: course breath sounds Musculoskeletal: no peripheral edema and good distal pulses Skin: no stigmata of neurocutaneous disease noted and normal and intact Eyes: extraocular muscles intact (EOMI) and pupils equal, round and reactive to light (PERRL) NEUROLOGIC EXAMINATION: Mental status: Alert and interactive Oriented to full date and location Oriented to person Speech fluent with no evidence of aphasia Cranial Nerves smile eye brow raise symmetric Reflexes: Deep tendon reflexes were symmetrical and graded 2/5 UE decrease LE. plantar neutral Sensory: no deficit to vibration, GT proprioception intact, cool slightly decrease on right LE Coordination: finger to nose with no bi pap, reaching tremor bilaterally no pronator drift Gait/Stance: Posture lying in bed Motor: Negative for pronator drift of out stretched arms with eyes closed. Strength: biceps triceps hand rigging helper deltoids intrinsics bilaterally 5/5, hip flex patellar , plantar 5/5 bilaterally Laboratory Results Past 24 Hours: 07/31/17 06:38 Red Blood Count 4.52, Mean Corpuscular Volume 89.6, Mean Corpuscular Hemoglobin 30.3, Mean Corpuscular Hemoglobin Concent 33.8, Mean Platelet Volume 10.6, Neutrophils (%) (Auto) 87.5, Lymphocytes (%) (Auto) 9.2, Monocytes (%) (Auto) 3.1, Eosinophils (%) (Auto) 0.0, Basophils (%) (Auto) 0.0, Neutrophils # (Auto) 10.68, Lymphocytes # (Auto) 1.13, Monocytes # (Auto) 0.38, Eosinophils # (Auto) 0.00, Basophils # (Auto) 0.00 07/30/17 17:35 Test 07/30/17 17:34 07/30/17 17:35 07/30/17 18:00 07/30/17 18:40 Bedside Glucose 123 mg/dl (70-99) Anion Gap 7.0 mmol/L (3-11) Est Creatinine Clear Calc Drug Dose 84.0 ml/min Estimated GFR () 75.3 Estimated GFR (Non- 65.0 BUN/Creatinine Ratio 11.8 (10-20) Estimated Average Glucose 126 mg/dl Hemoglobin A1c 6.0 % (4.5-5.6) Calcium Level 9.3 mg/dl (8.5-10.1) Total Creatine Kinase 228 U/L (39-308) Troponin I < 0.015 ng/ml (0-0.045) Prothrombin Time 9.9 SECONDS (9.0-12.0) Prothromb Time International Ratio 0.9 (0.9-1.1) Activated Partial Thromboplast Time 25.2 SECONDS (21.0-31.0) Partial Thromboplastin Ratio 1.0 CSF Color COLORLESS CSF Appearance CLEAR CSF WBC 1 /uL (0-5) CSF RBC 0 /uL (0) CSF Xanthrochromic NO XANTHOCHROMIA CSF Cell Count Tube # 4 CSF Chemistry Tube # 2 CSF Glucose 87 mg/dl (40-70) CSF Total Protein 31.6 mg/dl (15.0-45.0) Test 07/30/17 20:39 07/31/17 06:38 07/31/17 09:35 Magnesium Level 2.4 mg/dl (1.8-2.4) Total Bilirubin 0.7 mg/dl (0.2-1) Direct Bilirubin mg/dl (0-0.2) Aspartate Amino Transf (AST/SGOT) 28 U/L (15-37) Alanine Aminotransferase (ALT/SGPT) 41 U/L (12-78) Alkaline Phosphatase 76 U/L (45-117) Total Protein 8.6 gm/dl (6.4-8.2) Albumin 4.4 gm/dl (3.4-5.0) Thyroid Stimulating Hormone (TSH) 1.030 uIu/ml (0.300-4.500) Ethyl Alcohol mg/dL < 3.0 mg/dl (0-3) Lyme Disease IgG Antibody NEG (NEG) Lyme Disease IgM Antibody NEG (NEG) White Blood Count 12.22 K/uL (4.8-10.8) Red Blood Count 4.52 M/uL (4.7-6.1) Hemoglobin 13.7 g/dL (14.0-18.0) Hematocrit 40.5 % (42-52) Mean Corpuscular Volume 89.6 fL (80-100) Mean Corpuscular Hemoglobin 30.3 pg (25-34) Mean Corpuscular Hemoglobin Concent 33.8 g/dl (32-36) Platelet Count 305 K/uL (130-400) Mean Platelet Volume 10.6 fL (7.4-10.4) Neutrophils (%) (Auto) 87.5 % Lymphocytes (%) (Auto) 9.2 % Monocytes (%) (Auto) 3.1 % Eosinophils (%) (Auto) 0.0 % Basophils (%) (Auto) 0.0 % Neutrophils # (Auto) 10.68 K/uL (1.4-6.5) Lymphocytes # (Auto) 1.13 K/uL (1.2-3.4) Monocytes # (Auto) 0.38 K/uL (0.11-0.59) Eosinophils # (Auto) 0.00 K/uL (0-0.5) Basophils # (Auto) 0.00 K/uL (0-0.2) RDW Standard Deviation 47.3 fL (36.4-46.3) RDW Coefficient of Variation 14.5 % (11.5-14.5) Immature Granulocyte % (Auto) 0.2 % Immature Granulocyte # (Auto) 0.03 K/uL (0.00-0.02) Urine Color YELLOW Urine Appearance CLEAR (CLEAR) Urine pH 6.5 (4.5-7.5) Urine Specific [place] 1.026 (1.000-1.030) Urine Protein NEG (NEG) Urine Glucose (UA) 1+ (NEG) Urine Ketones NEG (NEG) Urine Occult Blood 2+ (NEG) Urine Nitrite NEG (NEG) Urine Bilirubin NEG (NEG) Urine Urobilinogen NEG (NEG) Urine Leukocyte Esterase NEG (NEG) Urine WBC (Auto) 1-5 /hpf (0-5) Urine RBC (Auto) >30 /hpf (0-4) Urine Hyaline Casts (Auto) 1-5 /lpf (0-5) Urine Epithelial Cells (Auto) 0-5 /lpf (0-5) Urine Bacteria (Auto) NEG (NEG) Urine Opiates Screen POS (NEG) Urine Methadone, Qualitative NEG (NEG) Urine Barbiturates NEG (NEG) Urine Phencyclidine (PCP) Level NEG (NEG) Ur Amphetamine/Methamphetamine NEG (NEG) MDMA (Ecstasy) Screen NEG (NEG) Urine Benzodiazepines Screen NEG (NEG) Urine Cocaine Metabolite NEG (NEG) Urine Marijuana (THC) NEG (NEG) Imaging MRI brain with and without- Motion artifact. No definite acute intracranial abnormality. A few scattered punctate foci of T2 hyperintensity seen within the white matter of the supratentorial brain. These are nonspecific but can be seen the setting of migraines, minimal microvascular ischemic change, or less likely a demyelinating disease or Lyme's disease. MRA brain - Motion artifact. However, no definite stenosis, occlusion, or aneurysm within the [place]. 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 Impression 47 year old male with episode of severe migraine confusion and dysmetric with hand motions Plan 1. MRI with no evidence of stroke 2. pain mgt for possible botox injections as out patient 3. continue Maxalt PRN 4. Inderal ER 60 mg started hs 5. LP done in ED no Xanthochromia - Lyme titer pending 6. PT/OT for discharge needs further recommendations to follow I have seen and discussed above patient with Dr Brian Rosenberg, neurology I have seen this man and reviewed the history and examined him and reviewd the labs and imaging studies and the eeg all studies thus far are normal and he is nearly back tohis baseline suspect he had a syncopal event in the bathroom and then had a minor closed head injury with transient confusion he has no evidence clinically or on eeg for seizures and the mri is negative for a chiari or syrinx one of the issues that aros due to the tethered cord history. headaches may respond to inderal but to date have not responded to any agent and many have been tried and my plan ws to have him assessed for potential botox rx if insurance will cover will ask pain management to assess and start the insurance question rolling if they feel he is a candidate we will start inderal tonight check cssf findings tomorrow and if stable discharge with follow up with me as previously scheduled Brian Rosenberg MD
[2017-07-31 15:03] VITALS: BP 138/80; PULSE 77; TEMP 36.7; O2SAT 98
--- NOTE | 2017-07-31 17:30 | ELECTROENCEPHALOGRAPH REPORT ---
CLINICAL DIAGNOSES: Confusion and near syncope with severe headaches, question seizures versus a complicated migraine. ELECTROENCEPHALOGRAM DIAGNOSIS: Essentially normal during wakefulness. DESCRIPTION OF TRACING: This EEG was done as a bedside recording and was of good technical quality. A simultaneous video analysis of patient movement and behavior was obtained. Photic stimulation was performed. Hyperventilation was naught, and drowsiness and light sleep were not recorded. Under these conditions, there was evidence for a normal background rhythm in the alpha range of up to 10 Hz of maximum frequency and of up to 30 microvolts of maximum amplitude. This are maximum posterior head regions and bilaterally symmetrical. Polymorphic mid frequency theta activity was seen over all head regions without clear focal or regional predominance. Anterior head region maximum bilaterally symmetrical. Low voltage fast activity in the beta range is present. At no time during the waking tracing was there evidence for potentially epileptogenic activity at 4 polyspike or spike wave bursts, focal sharp waves or focal spikes. Photic stimulation provoked some modest driving response without a photomyogenic or photoparoxysmal component. INTERPRETATION: This EEG is essentially normal during wakefulness without evidence for focal or generalized encephalopathy and without evidence for potentially epileptogenic activity.
--- NOTE | 2017-07-31 17:54 | Progress Note ---
Medicine Progress Note Date & Time of Visit: Jul 31, 2017 at 17:54. Subjective Patient reports his migraine/CONTRERAS is better, only complains of soreness of his head where he fell and hit his head. No additional weakness in extremities. No overnight events noted. Patient has been ambulating with assistance and feels steadier on his feet. No other complaints at this time. Objective Last 8 Hrs Date Time Temp Pulse Resp B/P (MAP) Pulse Ox O2 Delivery O2 Flow Rate FiO2 07/31/17 16:00 Room Air 07/31/17 15:03 36.7 77 18 138/80 (99) 98 Room Air Physical Exam: GENERAL: Patient is in no acute distress. HEENT: No acute trauma, normocephalic, mucous membranes moist, no nasal congestion, no scleral icterus. NECK: No stridor, trachea is midline. LUNGS: Clear to auscultation bilaterally, diminished bases, no wheeze, no rhonchi, breath sounds equal. HEART: Without murmurs gallops or rubs, regular rate and rhythm. ABDOMEN: Soft, nontender, bowel sounds positive EXTREMITIES: No cyanosis or edema, grossly intact range of motion of all the extremities, no signs for acute trauma. NEUROLOGIC: Oriented x 3, no acute motor or sensory deficits, no focal weakness. SKIN: No rash, no jaundice, no diaphoresis. Laboratory Results: Last 24 Hours Test 07/30/17 18:00 07/30/17 18:40 07/30/17 20:39 07/31/17 06:38 White Blood Count 16.70 K/uL 12.22 K/uL Red Blood Count 5.09 M/uL 4.52 M/uL Hemoglobin 15.5 g/dL 13.7 g/dL Hematocrit 45.6 % 40.5 % Mean Corpuscular Volume 89.6 fL 89.6 fL Mean Corpuscular Hemoglobin 30.5 pg 30.3 pg Mean Corpuscular Hemoglobin Concent 34.0 g/dl 33.8 g/dl Platelet Count 324 K/uL 305 K/uL Mean Platelet Volume 10.5 fL 10.6 fL Neutrophils (%) (Auto) 91.3 % 87.5 % Lymphocytes (%) (Auto) 5.6 % 9.2 % Monocytes (%) (Auto) 2.8 % 3.1 % Eosinophils (%) (Auto) 0.0 % 0.0 % Basophils (%) (Auto) 0.1 % 0.0 % Neutrophils # (Auto) 15.23 K/uL 10.68 K/uL Lymphocytes # (Auto) 0.94 K/uL 1.13 K/uL Monocytes # (Auto) 0.47 K/uL 0.38 K/uL Eosinophils # (Auto) 0.00 K/uL 0.00 K/uL Basophils # (Auto) 0.02 K/uL 0.00 K/uL RDW Standard Deviation 47.0 fL 47.3 fL RDW Coefficient of Variation 14.4 % 14.5 % Immature Granulocyte % (Auto) 0.2 % 0.2 % Immature Granulocyte # (Auto) 0.04 K/uL 0.03 K/uL Prothrombin Time 9.9 SECONDS Prothromb Time International Ratio 0.9 Activated Partial Thromboplast Time 25.2 SECONDS Partial Thromboplastin Ratio 1.0 CSF Color COLORLESS CSF Appearance CLEAR CSF WBC 1 /uL CSF RBC 0 /uL CSF Xanthrochromic NO XANTHOCHROMIA CSF Cell Count Tube # 4 CSF Chemistry Tube # 2 CSF Glucose 87 mg/dl CSF Total Protein 31.6 mg/dl Magnesium Level 2.4 mg/dl Total Bilirubin 0.7 mg/dl Direct Bilirubin mg/dl Aspartate Amino Transf (AST/SGOT) 28 U/L Alanine Aminotransferase (ALT/SGPT) 41 U/L Alkaline Phosphatase 76 U/L Total Protein 8.6 gm/dl Albumin 4.4 gm/dl Thyroid Stimulating Hormone (TSH) 1.030 uIu/ml Ethyl Alcohol mg/dL < 3.0 mg/dl Lyme Disease IgG Antibody NEG Lyme Disease IgM Antibody NEG Test 07/31/17 09:35 Urine Color YELLOW Urine Appearance CLEAR Urine pH 6.5 Urine Specific [place] 1.026 Urine Protein NEG Urine Glucose (UA) 1+ Urine Ketones NEG Urine Occult Blood 2+ Urine Nitrite NEG Urine Bilirubin NEG Urine Urobilinogen NEG Urine Leukocyte Esterase NEG Urine WBC (Auto) 1-5 /hpf Urine RBC (Auto) >30 /hpf Urine Hyaline Casts (Auto) 1-5 /lpf Urine Epithelial Cells (Auto) 0-5 /lpf Urine Bacteria (Auto) NEG Urine Opiates Screen POS Urine Methadone, Qualitative NEG Urine Barbiturates NEG Urine Phencyclidine (PCP) Level NEG Ur Amphetamine/Methamphetamine NEG MDMA (Ecstasy) Screen NEG Urine Benzodiazepines Screen NEG Urine Cocaine Metabolite NEG Urine Marijuana (THC) NEG Date/Time Source Procedure Growth Status 07/30/17 18:40 Cerebral Spinal Fluid Gram Stain - Final Resulted 07/30/17 18:40 Cerebral Spinal Fluid CSF Culture - Preliminary NO GROWTH TO DATE. Resulted Assessment & Plan INTRACTABLE MIGRAINE: improving -started on propranolol last night -also has PRN NSAIDs and triptans which he has not utilized yet -Neuro consulted, appreciate recs; recommend evaluation by Pain management regarding whether patient would qualify for botox TRANSIENT RUE WEAKNESS: -MRI brain negative for stroke -most likely related to migraine -LP done in the ER, culture negative thus far -strength improved and back to baseline FALL/DISORIENTATION: -suspected from home medications but patient denies overuse/misuse TOBACCO ABUSE: -counselled on smoking cessation and the effects of smoking on migraines and high risk for stroke and vascular events as well as cancer CHRONIC BACK PAIN: -on fairly high doses of narcotics HYPERGLYCEMIA: -HbA1c: 6.0% -no history of diabetes Current Inpatient Medications: Current Inpatient Medications Medications (Trade) Dose Ordered Sig/Ezekiel Route Start Time Stop Time Status Last Admin Dose Admin Morphine Sulfate (MoRPHine SULFATE IR TAB) 22.5 mg QPM PO 07/31/17 21:00 08/14/17 20:59 Enoxaparin Sodium (Lovenox Inj) 30 mg Q24H SC 07/31/17 06:00 08/30/17 05:59 07/31/17 05:33 30 MG Acetaminophen (Tylenol Tab) 650 mg Q4H PRN PO 07/30/17 20:45 08/29/17 20:44 Nitroglycerin (Nitrostat Tab) 0.4 mg UD PRN SL 07/30/17 20:45 08/29/17 20:44 Lorazepam (Ativan Inj) 0.5 mg Q1H PRN IV 07/30/17 20:45 08/29/17 20:44 Nicotine (Nicoderm Cq 21MG Patch) 1 patch QAM TD 07/31/17 09:00 08/30/17 08:59 Tramadol HCl (Ultram Tab) `20-50 MG tabs for pain 25... Q6H PRN PO 07/30/17 20:45 08/29/17 20:44 Ketorolac Tromethamine (Toradol Inj) 15 mg Q6H PRN IV. 07/31/17 23:00 08/05/17 22:59 Ibuprofen (Advil Tab) 400 mg Q6H PRN PO 07/30/17 20:45 08/29/17 20:44 Miscellaneous (Remove Nicoderm Patch) 1 ea HS N/A 07/31/17 21:00 08/30/17 20:59 Baclofen (Lioresal Tab) 10 mg BID PRN PO 07/30/17 21:00 08/29/17 20:59 Multivitamins (Multivitamin Tab) 1 tab QAM PO 07/31/17 09:00 08/30/17 08:59 07/31/17 08:46 1 TAB Rizatriptan Benzoate (Maxalt Tab) 10 mg DAILY PRN PO 07/30/17 21:00 08/29/17 20:59 Miscellaneous Information (Order Awaiting Action) 1 ea QS N/A 07/31/17 00:00 08/30/17 00:00 Polyethylene (Miralax Powder Packet) 17 gm DAILY PRN PO 07/30/17 21:00 08/29/17 20:59 Ondansetron HCl (Zofran Inj) 4 mg Q6H PRN IV 07/30/17 21:00 08/29/17 20:59 Gadobutrol (Gadavist) 9 mmol UD PRN IV 07/30/17 22:30 08/03/17 22:29 Propranolol HCl (Inderal La Cap) 60 mg HS PO 07/31/17 21:00 08/30/17 20:59 Morphine Sulfate (Oramorph Sr Tab) 30 mg DAILY@0700 PO 08/01/17 07:00 08/15/17 06:59 Magnesium Citrate (Citrate Of Magnesia Soln) 150 ml DAILY PRN PO 07/31/17 12:00 08/30/17 11:59 07/31/17 12:55 150 ML
[2017-07-31] MEDS ORDERED: MoRPHine SULFATE IR 15 MG TAB (IMMEDIATE RELEASE) PO ONE (19:40)
[2017-07-31] MEDS ORDERED: RIZATRIPTAN BENZOATE 10 MG TAB PO ONE (19:40)
[2017-07-31] MEDS ORDERED: MoRPHine SULFATE IR 15 MG TAB (IMMEDIATE RELEASE) PO SCH (21:00)
[2017-07-31] MEDS ORDERED: PROPRANOLOL HCL 60 MG LA CAP PO SCH (21:00)
[2017-07-31 22:18] VITALS: BP 123/78; PULSE 73; TEMP 36.7; O2SAT 96
[2017-07-31] MEDS ORDERED: KETOROLAC TROMETHAMINE 15 MG/ML VIAL IV. PRN (23:00)
[2017-08-01] MEDS: ENOXAPARIN 30 MG/0.3 ML SYR SC SCH (06:25)
[2017-08-01] MEDS ORDERED: MoRPHine SULFATE CR 15 MG TAB (MS CONTIN) PO SCH (07:00)
[2017-08-01 07:13] VITALS: BP 128/84; PULSE 77; TEMP 37.1; O2SAT 99
[2017-08-01] MEDS: NICOTINE 21 MG/24 HR TDSY TD SCH (08:36)
[2017-08-01] MEDS: MULTIVITAMIN TAB PO SCH (08:37)
[2017-08-01] MEDS ORDERED: NALOXEGOL OXALATE 25 MG PO SCH (09:00)
[2017-08-01 10:04] VITALS: BP 122/76; PULSE 69; O2SAT 95
--- NOTE | 2017-08-01 12:31 | Pain Management Consultation ---
Pain Management Consultation Date of Consultation Aug 01, 2017. Reason for Consultation Migraine headaches Pain Location 1 - History This is a 47-year-old male that is being seen in consultation at the [facility] for migraine headaches. Patient states that the current migraine headache is located along the right frontal/temporal/parietal region and is described as an aching, throbbing sensation. He does have a chronic history of migraine headaches. He states that the migraine headaches are aggravated with light, sounds, stress. Medications are slightly efficacious towards diminishing his pain. Patient has been seeing neurology regularly for several years and has tried medications such as Maxalt, Imitrex, propranolol, muscle relaxers, NSAIDs, opioids, Excedrin, and several other medications. He describes between 18-20 migraine headache days a month. Symptoms typically lasts 6+ hours. Pain is rated 3/10 at its best and 9/10 at its worst. Occasionally he will have associated nausea and vomiting. He denies any vision changes, neck pain, extremity weakness. Emergency department he was mentioning right upper extremity numbness and weakness but he has been using it appropriately during our discussion. Case discussed with Dr. Verduzco Past Medical/Surgical History (1) Migraine (2) Lumbar postlaminectomy syndrome Family History Cancer Social / Work History Drug Use: none Marital Status: single Housing Status: lives alone Occupation: disabled Allergies Coded Allergies: Prochlorperazine (Verified Allergy, Unknown, twitchy/ skin crawling, ) Rice (Verified Allergy, Unknown, SPLOTCHY RASH ON FACE, 04/21/16) Medications Current Inpatient Medications Medications (Trade) Dose Ordered Sig/Ezekiel Route Start Time Stop Time Status Last Admin Dose Admin Enoxaparin Sodium (Lovenox Inj) 30 mg Q24H SC 07/31/17 06:00 08/30/17 05:59 08/01/17 06:25 30 MG Acetaminophen (Tylenol Tab) 650 mg Q4H PRN PO 07/30/17 20:45 08/29/17 20:44 Nitroglycerin (Nitrostat Tab) 0.4 mg UD PRN SL 07/30/17 20:45 08/29/17 20:44 Lorazepam (Ativan Inj) 0.5 mg Q1H PRN IV 07/30/17 20:45 08/29/17 20:44 Nicotine (Nicoderm Cq 21MG Patch) 1 patch QAM TD 07/31/17 09:00 08/30/17 08:59 Tramadol HCl (Ultram Tab) `20-50 MG tabs for pain 25... Q6H PRN PO 07/30/17 20:45 08/29/17 20:44 Ketorolac Tromethamine (Toradol Inj) 15 mg Q6H PRN IV. 07/31/17 23:00 08/05/17 22:59 Ibuprofen (Advil Tab) 400 mg Q6H PRN PO 07/30/17 20:45 08/29/17 20:44 Miscellaneous (Remove Nicoderm Patch) 1 ea HS N/A 07/31/17 21:00 08/30/17 20:59 Baclofen (Lioresal Tab) 10 mg BID PRN PO 07/30/17 21:00 08/29/17 20:59 Multivitamins (Multivitamin Tab) 1 tab QAM PO 07/31/17 09:00 08/30/17 08:59 08/01/17 08:37 1 TAB Rizatriptan Benzoate (Maxalt Tab) 10 mg DAILY PRN PO 07/30/17 21:00 08/29/17 20:59 Polyethylene (Miralax Powder Packet) 17 gm DAILY PRN PO 07/30/17 21:00 08/29/17 20:59 Ondansetron HCl (Zofran Inj) 4 mg Q6H PRN IV 07/30/17 21:00 08/29/17 20:59 Gadobutrol (Gadavist) 9 mmol UD PRN IV 07/30/17 22:30 08/03/17 22:29 Propranolol HCl (Inderal La Cap) 60 mg HS PO 07/31/17 21:00 08/30/17 20:59 07/31/17 21:12 60 MG Morphine Sulfate (Oramorph Sr Tab) 30 mg DAILY@0700 PO 08/01/17 07:00 08/15/17 06:59 08/01/17 06:25 30 MG Magnesium Citrate (Citrate Of Magnesia Soln) 150 ml DAILY PRN PO 07/31/17 12:00 08/30/17 11:59 07/31/17 12:55 150 ML Escitalopram Oxalate (Movantik) 25 mg DAILY PO 08/01/17 09:00 08/31/17 08:59 08/01/17 06:25 25 MG Morphine Sulfate (MoRPHine SULFATE IR TAB) 22.5 mg QPM PO 08/01/17 21:00 08/14/17 20:59 Review of Systems Denies complaints related to 10 point organ system review. Physical Exam Height & Weight: Height 6 feet, 3.00 inches. Weight 89.800 (Kilograms) 197 (Pounds) Last Vital Signs Documentation Date Time Temp Pulse Resp B/P (MAP) Pulse Ox O2 Delivery O2 Flow Rate FiO2 08/01/17 10:04 69 95 08/01/17 08:00 Room Air 08/01/17 07:13 37.1 18 128/84 (99) Exam: GENERAL: Mr. Lin is a 47 y/o WM that appears his stated age. Speech and cognition is intact. Mood and affect is appropriate. He does not appear in any acute distress. We will make positional changes without appearing in any pain. HEAD: No tenderness of the bilateral greater occipital, lesser occipital, auriculotemporal, supraorbital, supratrochlear nerves. NECK: Full flexion, extension, lateral rotation bilaterally, head-shoulder ROM. Spurling maneuver negative bilaterally. No muscle spasm or trigger points noted. No facet tenderness to provocative testing. UPPER EXTREMITIES: Upper extremity strength is 5/5 bilaterally. Bilateral sensation equal bilaterally without allodynia, dysesthesia, or hyperpathia. +2 bilateral radial pulse. NEURO: Cranial nerves are grossly intact; no focal deficits noted; AAO x 3. Laboratory Laboratory Results (Last CBC): 07/31/17 06:38 Red Blood Count 4.52 L, Mean Corpuscular Volume 89.6, Mean Corpuscular Hemoglobin 30.3, Mean Corpuscular Hemoglobin Concent 33.8, Mean Platelet Volume 10.6 H, Neutrophils (%) (Auto) 87.5, Lymphocytes (%) (Auto) 9.2, Monocytes (%) ( Auto) 3.1, Eosinophils (%) (Auto) 0.0, Basophils (%) (Auto) 0.0, Neutrophils # ( Auto) 10.68 H, Lymphocytes # (Auto) 1.13 L, Monocytes # (Auto) 0.38, Eosinophils # (Auto) 0.00, Basophils # (Auto) 0.00 Imaging MRI: enhanced MRI Findings Brain 07/30/17 IMPRESSION: 1. Motion artifact. No definite acute intracranial abnormality. 2. A few scattered punctate foci of T2 hyperintensity seen within the white matter of the supratentorial brain. These are nonspecific but can be seen the setting of migraines, minimal microvascular ischemic change, or less likely a demyelinating disease or Lyme's disease. Assessment 1. Chronic migraine headaches 2. Lumbar postlaminectomy syndrome 3. Chronic opioid dependency Recommendations 1. Patient is a candidate for Botox injections per migraine protocol. He would have to follow up in our office on an outpatient basis to submit information to insurance company. 2. Pain Management has previously seen the patient in our pain clinic and an intrathecal morphine trial was performed in 2016. The catheter came out so the trial had to be performed again. There were complications between the patient and the office so the morphine trial was not performed again. He is leary about coming back into our office for Botox injection due to previous issues. I have told the patient that he would be welcome to return to our office for possible Botox but if he does not want to he may go to a different facility to Botox injections per migraine protocol. He is understanding and he will likely return to our office for possible Botox injections. 3. He may follow up in our office after discharge.
[2017-08-01] MEDS ORDERED: INDSR/60 PO (13:15)
--- NOTE | 2017-08-01 13:18 | Discharge Instructions ---
Discharge Instructions Date of Service Aug 01, 2017. Admission Reason for Admission: Rue Weakness Discharge Discharge Diagnosis / Problem: Intractable migraine, RUE weakness Discharge Goals Goal(s): Diagnostic testing, Therapeutic intervention Activity Recommendations Activity Limitations: resume your previous activity . Instructions / Follow-Up Instructions / Follow-Up Please see Dr. Cano on August 03 at 10:45 AM for hospital follow up. Please arrange for follow up with the Pain management clinic regarding botox injections for headaches Current Hospital Diet Patient's current hospital diet: Regular Diet Discharge Diet Recommended Diet: Regular Diet Procedures Procedures Performed: LP MRI brain Pending Studies Studies pending at discharge: no Laboratory Results Hemoglobin A1c Test 07/30/17 17:35 Range/Units Estimated Average Glucose 126 mg/dl Hemoglobin A1c 6.0 H 4.5-5.6 % Medical Emergencies . Who to Call and When: Medical Emergencies: If at any time you feel your situation is an emergency, please call 911 immediately. . Non-Emergent Contact Non-Emergency issues call your: Primary Care Provider Call Non-Emergent contact if: you have a fever, your pain is unusual for you, you have any medication questions . . "Provider Documentation" section prepared by Rama Hodge. .
--- NOTE | 2017-08-01 13:19 | Discharge Summary ---
Discharge Summary Date of Service Aug 01, 2017. Discharge Summary Admission Date: Jul 30, 2017 at 20:28 Discharge Date: Aug 01, 2017 Discharge Disposition: Home Principal Diagnosis: migraine headaches, RUE weakness Medication Reconciliation New Medications: Propranolol Hcl (Propranolol ER) 60 Mg Capcr 60 MG PO HS, #30 TABS Continued Medications: Fxjdtnc-Ttifiokupcllv-Svryxzct (Excedrin Migraine) 1 Tab Tab 2 TABS PO UD PRN for Migraine TAKE PER PACKAGE DIRECTIONS Baclofen (Lioresal) 10 Mg Tab 10 MG PO BID PRN for Muscle Spasm, TAB Morphine Sulfate (Morphine Sulfate Er) 15 Mg Tab 30 MG PO QAM Morphine Sulfate Ir (Morphine Sulfate Ir) 15 Mg Tab 22.5 MG PO QPM, TAB Multivitamin (Multivitamin) Tab 1 TAB PO QAM Naloxegol Oxalate (Movantik) 25 Mg Tab 25 MG PO DAILY Ondasetron Odt (Zofran Odt) 4 Mg Tab 4 MG SL Q6H PRN for Nausea, TAB Polyethylene Glycol 3350 (Miralax) 1 Pow Pow 17 GM PO DAILY PRN for Constipation, GM Rizatriptan Benzoate (Rizatriptan Benzoate) 10 Mg Tab 10 MG PO UD PRN for Migraine Admission Information HPI (per Admitting provider): CHIEF COMPLAINT: Headache, fall. HISTORY OF PRESENT ILLNESS: History obtained from patient and records. Medical history significant for chronic pain on narcotics, anxiety disorder, not on meds, hyperlipidemia, hx kidney stones, ongoing tobacco abuse, migraine. Patient had migraine since his teens. The the last 3 years patient noted worsening of migraine headaches occurring without usual precipitants. Usual description of right-sided headaches with occasional aura with nausea about 3-4 times a week. Some relief with p.r.n. migraine medication. He was [place] by his PCP [place] [facility] [place]. MRI contemplated if patient could get over his claustrophobia, possible initiation of Propranolol, consideration for Botox tx as per outpatient notes. Over the weekend, patient had worsening migraine headache. Fell down this a.m because of headache and being "fuzzy." No passing out. Patient called out for help. Transient right upper extremity weakness. Shooting neck pain No fever, no chills. Brought to Emergency Room. LP done at the ER. Patient currently feeling a little better. MEDICAL HISTORY: As above. Past history intrathecal pain pump under supervision [facility]. Patient has reservations about going back to department for services. SURGERIES: Back surgery. HOME MEDICATIONS: Include baclofen and morphine sulfate, morphine ER, Movantik, sertraline. ALLERGIES: COMPAZINE. FAMILY HISTORY: Breast cancer. Stroke PERSONAL AND SOCIAL HISTORY: One pack daily. No chronic EtOH intake, disabled , past history service REVIEW OF SYSTEMS: As per HPI, all 10 systems reviewed, all other ROS negative. PHYSICAL EXAMINATION: VITAL SIGNS: Blood pressure was noted to be 138/86, pulse rate noted to be 76, RR 18, sats 98 on room air. GENERAL: Noted to be uncomfortable, loquacious, occasional tangentiality/ expansiveness in speech content. SKIN: Normal color, warm HEENT : [place] palpebral conjunctivae, no ptosis, dry buccal mucosa. NECK: Supple, nontender. CHEST: CTA, no tenderness. HEART: RRR, no murmur. ABDOMEN: Some distention, non tender. EXTREMITIES: Some bruising on the right forearm. No other gross deformities NE : Coherent, no facial symmetry, equal MMTS. (patient would actually use his right upper extremity to reach for silence button of his IV infusion pump) Gait and stance not assessed Hospital Course INTRACTABLE MIGRAINE: improving -started on propranolol -also has PRN NSAIDs and triptans which he has not utilized yet -Neuro consulted, appreciate recs; recommend evaluation by Pain management regarding whether patient would qualify for botox -Pain management consulted, will be getting botox as an outpatient, patient needs to call and make the appointment TRANSIENT RUE WEAKNESS: -MRI brain negative for stroke -most likely related to migraine -LP done in the ER, culture negative thus far -strength improved and back to baseline FALL/DISORIENTATION: -suspected from home medications but patient denies overuse/misuse TOBACCO ABUSE: -counselled on smoking cessation and the effects of smoking on migraines and high risk for stroke and vascular events as well as cancer CHRONIC BACK PAIN: -on fairly high doses of narcotics HYPERGLYCEMIA: -HbA1c: 6.0% -no history of diabetes PHYSICAL EXAM: GENERAL: Patient is in no acute distress. HEENT: No acute trauma, normocephalic, mucous membranes moist, no nasal congestion, no scleral icterus. NECK: No stridor, trachea is midline. LUNGS: Clear to auscultation bilaterally, no wheeze, no rhonchi, breath sounds equal. HEART: Without murmurs gallops or rubs, regular rate and rhythm. ABDOMEN: Soft, nontender, bowel sounds positive EXTREMITIES: No cyanosis or edema, full range of motion of all the joints without pain or difficulty, no signs for acute trauma. NEUROLOGIC: Oriented x 3, no acute motor or sensory deficits, no focal weakness. SKIN: No rash, no jaundice, no diaphoresis. Total time spent on discharge = 37 This includes examination of the patient, discharge planning, medication reconciliation, and communication with other providers. Discharge Instructions see patient instructions
[2017-08-01 14:01] VITALS: BP 122/76; PULSE 69; TEMP 37.1; O2SAT 95
[2017-08-01] MEDS ORDERED: MoRPHine SULFATE IR 15 MG TAB (IMMEDIATE RELEASE) PO SCH (21:00)
== END 2017-08-01 14:25 | disposition home or self-care (01) ==
LOC: EDBD 16:44 → C.EDB 16:45 → C.2T 20:28 → ENRESERV 20:42 → C.MS2W 23:10 → ENRESERV 23:22
PROVIDERS: ADMIT Internal Medicine; ATTEND Internal Medicine
DX: G43.919 Migraine, unspecified, intractable, without status migrainosus (principal); R53.1 Weakness; R41.0 Disorientation, unspecified; F17.200 Nicotine dependence, unspecified, uncomplicated; M96.1 Postlaminectomy syndrome, not elsewhere classified; Z91.81 History of falling; Z91.018 Allergy to other foods; Z87.442 Personal history of urinary calculi; Z80.3 Family history of malignant neoplasm of breast; Z82.3 Family history of stroke

== ENCOUNTER 2017-11-23 22:17 | Emergency (ER) | payer OTHER ==
[~2017-11-23] VITALS: Ht 190.5 cm; Wt 92.8 kg
[~2017-11-23 22:17] MED LIST changes: -BACL10TA PO; +FIBER PO; +INDSR/60 PO; -MORP-157 PO; +MORP1TAB11 PO; -ONDA4TAB10 SL; -POLY335019 PO; -RIZA10TA18 PO; +RIZA10TA21 PO
[2017-11-23 22:21] VITALS: TEMP 36.8; Ht 190.5 cm; Wt 92.8 kg
[2017-11-23] MEDS ORDERED: SERT100T PO (23:01)
[2017-11-23] MEDS ORDERED: ACET-1256 PO (23:01)
[2017-11-23] MEDS ORDERED: MORP1TAB12 PO (23:01)
[2017-11-23 23:13] LABS: HEMATOCRIT 43.4 % (42-52); HEMOGLOBIN 15.2 g/dL (14.0-18.0); MEAN CELL VOLUME 90.2 fL (80-100); MEAN CORPUSCULAR HEMOGLOBIN 31.6 pg (25-34); MEAN PLATELET VOLUME 10.6 fL (7.4-10.4); PLATELET COUNT 292 K/uL (130-400); RED CELL DISTRIBUTION WIDTH CV 14.3 % (11.5-14.5); WHITE BLOOD COUNT 9.53 K/uL (4.8-10.8)
[2017-11-23] MEDS ORDERED: SODIUM CHLORIDE 0.9% 1000ML 1,000 ML IV STA (23:13)
[2017-11-23] MEDS ORDERED: KETOROLAC TROMETHAMINE 30 MG/ML VIAL IV STA (23:13)
[2017-11-23] MEDS ORDERED: ONDANSETRON INJ 2 MG/ML 2 ML VIAL IV STA (23:13)
--- NOTE | 2017-11-23 23:18 | EMERGENCY ROOM VISIT NOTE ---
History Report prepared by Nani: Bossman Rogers Under the Supervision of: Dr. Mitzi Suarez D.O. First contact with patient: 22:56 Chief Complaint: FLANK PAIN Stated Complaint: SIDE AND BACK PAIN History of Present Illness The patient is a 47 year old male who presents to the Emergency Room with complaints of constant right-sided flank pain that began this evening after an episode of hematuria. Patient states the pain started as bilateral flank "pressure" and then migrated to only his right flank. Past medical history includes kidney stones. He states his pain is not as bad as his previous kidney stones. He adds during his previous kidney stones he was experiencing nausea and vomiting which does not have now. Patient states his kidney stones have always passed on their own without any procedures. He states he was being seen at the [facility] at the time of his other kidney stones. Patient adds he has a history of lower back pain which he takes Morphine for. Patient adds that he has "felt off" the past 3 days. Patient denies fevers, diarrhea, and chills. He denies a history of heart or lung problems. Patient states he used to live in [place] but has lived in [place] for the past 10 years. Source of History: patient Onset: This evening Position: back (Right flank) Quality: pressure Timing: constant Modifying Factors (Relieving): other (None) Associated Symptoms: + urinary symptoms (Hematuria), No fevers, No chills, No nausea, No vomiting, No diarrhea Review of Systems See HPI for pertinent positives & negatives. A total of 10 systems reviewed and were otherwise negative. Past Medical & Surgical Medical Problems: (1) Lumbar postlaminectomy syndrome (2) RUE weakness Family History Cancer Social History Smoking Status: Current Every Day Smoker Alcohol Use: occasionally Marital Status: single Housing Status: lives alone Occupation Status: disabled Current/Historical Medications Scheduled Acetaminophen (Tylenol), 1,000 MG PO prn ud Fiber Laxative (Fiber Laxative), 1 TAB PO DAILY Morphine Sulfate (Morphine Sulfate Ir), 0.5-1 TAB PO DAILY Morphine Sulfate (Morphine Sulfate Er), 30 MG PO BID Multivitamin (Multivitamin), 1 TAB PO QAM Naloxegol Oxalate (Movantik), 25 MG PO DAILY Sertraline Hcl (Zoloft), 50 MG PO DAILY Scheduled PRN Ktvmukm-Wqiyxpfiyuogr-Agxaqaht (Excedrin Migraine), 2 TABS PO UD PRN for Migraine Rizatriptan Benzoate (Rizatriptan Benzoate), 10 MG PO UD PRN for Migraine Allergies Coded Allergies: Prochlorperazine (Verified Allergy, Unknown, twitchy/ skin crawling, ) [place] (Verified Allergy, Unknown, SPLOTCHY RASH ON FACE, 04/21/16) Physical Exam Vital Signs Date Time Temp Pulse Resp B/P (MAP) Pulse Ox O2 Delivery O2 Flow Rate FiO2 11/24/17 01:15 78 18 134/64 97 Room Air 11/23/17 23:49 75 18 125/85 97 Room Air 11/23/17 22:21 36.8 77 18 145/72 97 Room Air Physical Exam General: Patient is ill-appearing. HEENT: Head - normocephalic and atraumatic Pupils are equal, round, and reactive to light. Extraocular eye muscles are intact, and sclera are anicteric. Nose - moist nasal mucosa without discharge. Mouth - moist buccal mucosa. Oropharynx is nonerythematous and there is no tonsillar exudate or edema noted. Neck: Supple; no JVD, nuchal rigidity, cervical lymphadenopathy. Heart: Regular rate and rhythm. There is a normal S1 and S2 with no murmurs, clicks, or gallops appreciated. Lungs: Clear to auscultation bilaterally with no wheezes, rales, or rhonchi. Abdomen: Soft, completely nontender, nondistended, with good bowel sounds. There are no palpable pulsatile masses or hepatosplenomegaly. There is no guarding, rigidity, or rebound noted. Extremities: No evidence of cyanosis, clubbing, or edema. There are easily palpable peripheral pulses. Skin: Pale, warm, and dry with good turgor and no rashes. Medical Decision & Procedures ER Provider Diagnostic Interpretation: Radiology results as stated below per my review and the radiologist's interpretation: CT ABDOMEN & PELVIS Without Contrast: Comparison 05/29/2011 There is a stone at the right ureteropelvic junction measuring up to a length of 1 cm on the provided axial images. Associated mild pelviectasis is present with urothelial thickening and periureteral stranding. No evidence for small bowel obstruction or focal inflammation. Moderate colonic stool. No evidence for focal colitis. The appendix is not well visualized though there is no evidence for pericecal inflammation. Lumbar posterior fusion changes with laminectomies and associated scarring. Radiologist: Cuco Mary MD Laboratory Results 11/23/17 22:55 11/23/17 22:55 Test 11/23/17 22:35 11/23/17 22:55 Urine Color RED Urine Appearance CLEAR (CLEAR) Urine pH (4.5-7.5) Urine Specific [place] 1.002 (1.000-1.030) Urine Protein POS (NEG) Urine Glucose (UA) (NEG) Urine Ketones (NEG) Urine Occult Blood (NEG) Urine Nitrite (NEG) Urine Bilirubin (NEG) Urine Urobilinogen (NEG) Urine Leukocyte Esterase (NEG) Urine RBC >30 /hpf (0-4) Urine WBC 1-5 /hpf (0-5) Urine Epithelial Cells 5-10 /lpf (0-5) Urine Bacteria NEG (NEG) Red Blood Count 4.81 M/uL (4.7-6.1) Mean Corpuscular Volume 90.2 fL (80-100) Mean Corpuscular Hemoglobin 31.6 pg (25-34) Mean Corpuscular Hemoglobin Concent 35.0 g/dl (32-36) RDW Standard Deviation 48.0 fL (36.4-46.3) RDW Coefficient of Variation 14.3 % (11.5-14.5) Mean Platelet Volume 10.6 fL (7.4-10.4) Anion Gap 6.0 mmol/L (3-11) Est Creatinine Clear Calc Drug Dose 102.0 ml/min Estimated GFR () 95.3 Estimated GFR (Non- 82.2 BUN/Creatinine Ratio 11.2 (10-20) Calcium Level 8.7 mg/dl (8.5-10.1) Laboratory results per my review. Medications Administered Medications (Trade) Dose Ordered Sig/Ezekiel Route Start Time Stop Time Status Last Admin Dose Admin Ketorolac Tromethamine (Toradol Inj) 30 mg NOW STAT IV 11/23/17 23:13 11/23/17 23:15 DC 11/23/17 23:23 30 MG Ondansetron HCl (Zofran Inj) 4 mg NOW STAT IV 11/23/17 23:13 11/23/17 23:15 DC 11/23/17 23:23 4 MG Sodium Chloride 1,000 ml @ 999 mls/hr Q1H1M STAT IV 11/23/17 23:13 11/24/17 00:13 DC 11/23/17 23:22 999 MLS/HR Procedure IV Toradol IV normal saline solution ED Course 2: Past medical records reviewed. The patient was evaluated in room C3. A complete history and physical exam was performed. IV lock was initiated and labs are drawn as above. 2313: Sodium Chloride 1000 ml @ 999 mls/hr IV, Zofran Inj 4mg IV, and Toradol Inj 30mg IV. The patient went for CT scan of the abdomen/pelvis to evaluate for a kidney stone. 0054: Upon reevaluation, the patient is comfortable but states his pain is still a 6/10 in severity. I offered him admission and evaluation with urology but he states he cannot stay because he has dogs at home. software development manager will arrange for a outpatient urology visit on Sunday morning for the patient. I informed the patient to return to the ER if he had fevers, vomit, or intractable pain. I discussed findings and results with him. He verbalized agreement of the treatment plan. He was discharged home. Medical Decision The patient is a 47 year old male who presents to the ED with constant right- sided flank pain. Differential diagnosis includes pyelonephritis, ureteral colic , obstructive neuropathy, and hematuria. lab interp: No leukocytosis; stable H&H Normal renal function; normal glucose Urinalysis was positive for protein and greater than 30 red blood cells but no bacteria or white blood cells This is a 47-year-old male patient presents to the emergency department with pain in his right flank. He does have history of kidney stones. He initially noticed hematuria and the pain developed. CT scan of the abdomen/pelvis shows a 1 cm UPJ stone. I am concerned with the size of the stone and the patient will not pass it. However, he was unwilling to be admitted into the hospital for urology evaluation. The patient has no signs of sepsis or infection. He will follow up on Sunday with urology. He was told return to the emergency department sooner if he developed any fever, vomiting or intractable pain. The patient currently takes morphine for chronic low back pain. I have asked him to supplement with Advil Medication Reconcilliation Current Medication List: was personally reviewed by me Blood Pressure Screening Patient's blood pressure: Normal blood pressure Blood pressure disposition: Did not require urgent referral Impression Primary Impression: Obstruction of right ureteropelvic junction (UPJ) due to stone Scribe Attestation The scribe's documentation has been prepared under my direction and personally reviewed by me in its entirety. I confirm that the note above accurately reflects all work, treatment, procedures, and medical decision making performed by me. Departure Information Dispostion Home / Self-Care Referrals No Doctor, Assigned (PCP) Forms HOME CARE DOCUMENTATION FORM, IMPORTANT VISIT INFORMATION Patient Instructions Kidney Stones, Kidney Stones Tx Remove, My [facility] Additional Instructions Rest. Take plenty of clear liquids. Follow up with Urology on Sunday. Return to the ER for admission if you develop a fever, vomiting, or intractable pain. take advil - 800mg every 6-8 hours with food for pain
[2017-11-23 23:33] LABS: CALCIUM 8.7 mg/dl (8.5-10.1); CREATININE 1.07 mg/dl (0.60-1.40); POTASSIUM 3.8 mmol/L (3.5-5.1)
[2017-11-24 01:15] VITALS: BP 134/64; PULSE 78; O2SAT 97
--- NOTE | 2017-11-24 05:58 | DIAGNOSTIC IMAGING REPORT ---
ABD/PELVIS WITHOUT FOR STONE CLINICAL HISTORY: 47 years-old Male presenting with eval for right flank pain, history of stones, hematuria. TECHNIQUE: Multidetector CT of the abdomen and pelvis was performed without the use of intravenous contrast. IV contrast: None. A dose lowering technique was used consistent with the principles of ALARA (as low as reasonably achievable). COMPARISON: 05/29/2011. CT DOSE (mGy.cm): The estimated cumulative dose is 1042.75 mGy.cm. FINDINGS: Young Adult Librarian topogram: Extensive lumbar fusion hardware. Lung bases: Minimal basilar opacities, likely atelectasis. Normal heart size. No pericardial or pleural effusion. Liver: Normal morphology. Normal density. Biliary: No gross biliary ductal dilatation allowing for noncontrast technique. Normal gallbladder. Pancreas: Mild parenchymal atrophy. Spleen: Normal. Adrenal glands: Normal. Kidneys and ureters: 10 mm calculus at the right renal pelvis with right renal collecting system urothelial thickening. There is mild right pelviectasis without convincing evidence of right hydronephrosis. Ureters normal. Bladder: Normal. Pelvic organs: Prostate and seminal vesicles normal. Bowel: Normal appendix. No bowel obstruction. Peritoneal cavity: No free fluid or intraperitoneal gas. Lymph nodes: No gross lymphadenopathy allowing for noncontrast technique. Vasculature: Atherosclerosis of the normal caliber abdominal aorta. Abdominal wall: Small fat-containing umbilical hernia. Musculoskeletal: Posterior lumbar fusion hardware from L2 to S1 with associated laminectomy defects. IMPRESSION: 1. 10 mm right renal calculus at the right renal pelvis. Evidence of urothelial irritation though the stone does not appear to be obstructing the right renal collecting system. No additional renal or ureteral calculus. Electronically signed by: Elias Mendez M.D. 11/24/2017 5:57 AM Dictated Date/Time: 11/24/2017 5:49 AM
[2017-11-26] MEDS ORDERED: IBUP-1428 PO (15:56)
[2017-11-26] MEDS ORDERED: TAMS0.4C38 PO (18:13)
== END 2017-11-24 01:41 | disposition home or self-care (01) ==
LOC: C.EDB 22:18 → C.EDC 11-24 01:41
DX: N20.1 Calculus of ureter (principal); M54.5 Low back pain; G89.29 Other chronic pain; F17.200 Nicotine dependence, unspecified, uncomplicated; Z79.891 Long term (current) use of opiate analgesic; Z79.899 Other long term (current) drug therapy; Z88.8 Allergy status to other drugs, medicaments and biological substances; Z91.048 Other nonmedicinal substance allergy status

== ENCOUNTER → 2017-11-26 | Day surgery (SDC) | payer OTHER ==
[~2017-11-26] VITALS: Ht 190.5 cm; Wt 95.3 kg
[~2017-11-26] MED LIST changes: +ACET-1256 PO; +ACET-1693 PO; +ATROPINE SULFATE 0.1 MG/ML 5ML SYR IV PRN; +CEFAZOLIN 2000MG IV PUSH 15 ML IV SCH; +EpHEDrine SULFATE INJ 50 MG/ML AMP IV PRN; +FENTANYL CITRATE INJ 50 MCG/1 ML 2 ML VIAL ONE; +HYDROmorphone INJ 0.5 MG/0.5 ML SYR ONE; +HYDROmorphone INJ 2 MG/ML SYR/VIAL IV PRN; +IBUP-1428 PO; -INDSR/60 PO; +LACTATED RINGER'S 1000ML 1,000 ML IV SCH; +MIDAZOLAM HCL 1 MG/ML 2ML VIAL ONE; -MORP1TAB11 PO; +MORP1TAB12 PO; +ONDANSETRON INJ 2 MG/ML 2 ML VIAL IV PRN; +PROPOFOL IV EMULSION 10 MG/ML 20 ML VIAL ONE; +SERT100T PO; +TAMS0.4C38 PO
[2017-11-26 16:03] VITALS: BP 128/79; PULSE 65; TEMP 37; O2SAT 98; Ht 190.5 cm; Wt 95.3 kg
--- NOTE | 2017-11-26 16:43 | History and Physical ---
History & Physical Date Nov 26, 2017. Chief Complaint right renal stone History of Present Illness The patient is a 47 year old male with complaints of intermittent mild to moderate pain due t a partially obstructing right renal stone. It measures 10mm on CT scan. He has been offered treatment options and we plan cysto right stent today. We will do right ureteroscopy next week. Past Medical/Surgical History Medical Problems: (1) Lumbar postlaminectomy syndrome (2) RUE weakness Additional History Hepatic Disease: No Endocrine Disorder: No Kidney Disease: Yes Hypertension: No Heart Disease: No Bleeding Tendencies: No Infectious Diseases: No Other: back surgeries with continued pain. Allergies Coded Allergies: Prochlorperazine (Verified Allergy, Unknown, twitchy/ skin crawling, ) [place] (Verified Allergy, Unknown, SPLOTCHY RASH ON FACE, 11/26/17) Home Medications Scheduled Acetaminophen (Tylenol), 1,000 MG PO prn ud Fiber Laxative (Fiber Laxative), 1 TAB PO DAILY Morphine Sulfate (Morphine Sulfate Ir), 0.5-1 TAB PO DAILY Morphine Sulfate (Morphine Sulfate Er), 30 MG PO BID Multivitamin (Multivitamin), 1 TAB PO QAM Naloxegol Oxalate (Movantik), 25 MG PO DAILY Sertraline Hcl (Zoloft), 100 MG PO DAILY Scheduled PRN Oncegel-Jjuqzupwlzeqs-Zbaipojb (Excedrin Migraine), 2 TABS PO UD PRN for Migraine Ibuprofen (Motrin), 800 MG PO Q8H PRN for Pain Rizatriptan Benzoate (Rizatriptan Benzoate), 10 MG PO UD PRN for Migraine Physical Examination Skin: warm/dry, no rash Eyes: normal inspection Respiratory/Chest: lungs clear, normal breath sounds, no respiratory distress Cardiovascular: regular rate, rhythm, no edema Abdomen / GI: normal bowel sounds Extremities: normal inspection Neurologic/Psych: alert, oriented x 3 Diagnosis right 10mm right renal stone intermittent obstruction with pain ASA Classification: ASA Class II Plan of Treatment To OR today for cysto and right stent under MAC next week will do right uscope laser litho basket stone extraction. ancef button sewer hand knee high scds
--- NOTE | 2017-11-26 18:12 | [facility] Operative Report ---
Operative Report Operative Date Nov 26, 2017. Pre-Operative Diagnosis Right UPJ Stone Post-Operative Diagnosis Right UPJ Stone Procedure(s) Performed Cystoscopy with Right Stent Placement Surgeon Dr. Khoury Microcomputer Support Specialist Surgeon(s) None Estimated Blood Loss 0cc Findings radio-opaque right upj stone Fluids 500ml Specimens None Drains 6 fr 26 centimeter double J stent Anesthesia Type MAC Complication(s) none Disposition yes Indications symptomatic 10mm right upj stone Description of Procedure Patient was sedated and placed in lithotomy position. His genitals were prepped and draped in sterile fashion. Time out held with team. I placed a 18 fr flexible cystoscope to bladder. The urethra is unremarkable. The prostate is small. The UOs are slit shape and normal location. I placed a stiff wire up right ureter and placed a 24 centimeter 6 Fr double J stent easily. There is brisk efflux after placement. I left bladder empty by placing a red rubber 16 fr catheter briefly and concluded case. He transferred to recovery under my escort, in stable condition. Plan: Home today Pyridium for dysuria x 3 days flomax daily oral pain meds as needed stone surgery next week ASA 2 clean contaminated case 11 seconds fluoro ancef antibiotic inventory control analyst I attest to the content of the Intraoperative Record and any orders documented therein. Any exceptions are noted below.
--- NOTE | 2017-11-26 18:14 | Discharge Instructions ---
Discharge Instructions Date of Service Nov 26, 2017. Admission Reason for Admission: Right Kidney Stone Discharge Discharge Diagnosis / Problem: right kidney stone Discharge Goals Goal(s): Decrease discomfort, Improve disease control Activity Recommendations Activity Limitations: resume your previous activity Lifting Limitations: none Exercise/Sports Limitations: as tolerated May Resume Sexual Activity: when tolerated Shower/Bathe: no limitations Driving or Machine Use: resume 1 day after discharge . Instructions / Follow-Up Instructions / Follow-Up will remove stone next week take tamsulosin capsule once daily to ease stent discomfort if needed Current Hospital Diet Patient's current hospital diet: Discharge Diet Recommended Diet: Regular Diet Procedures Procedures Performed: Cystoscopy with Right Stent Placement Pending Studies Studies pending at discharge: no Medical Emergencies . Who to Call and When: Medical Emergencies: If at any time you feel your situation is an emergency, please call 911 immediately. . Non-Emergent Contact Non-Emergency issues call your: Urologist ([phone] or [phone] ) Call Non-Emergent contact if: temperature is above 100.5 . . "Provider Documentation" section prepared by Lily Khoury. .
--- NOTE | 2017-11-26 18:22 | DIAGNOSTIC IMAGING REPORT ---
RETROGRADE INCLUDES KUB CLINICAL HISTORY: 47 years-old Male presenting with RT CYSTO/STENT. TECHNIQUE: 3 fluoroscopic image(s) recorded as part of an intraoperative procedure. COMPARISON: CT from 11/23/2017. FINDINGS/IMPRESSION: A wire was introduced into the right ureter. A calculus was displaced from the right renal pelvis to a lower pole calyx. Subsequently, a right ureteral stent was placed. Please see surgical report for further details. Dose area product (mGy.m^2): [id number]. Fluoroscopy time: 11.9 seconds. Number or time of fluoroscopic spot images: 0. Electronically signed by: Elias Mendez M.D. 11/26/2017 6:21 PM Dictated Date/Time: 11/26/2017 6:20 PM
[2017-11-26] MEDS: FENTANYL CITRATE INJ 50 MCG/1 ML 2 ML VIAL IV PRN ×3 (18:26→18:38)
--- NOTE | 2017-11-26 18:47 | Anesthesiology Progress Note ---
Anesthesia Post Op Note Date & Time Nov 26, 2017 at 18:47 Vital Signs Pain Intensity: 4 Vital Signs Past 12 Hours Date Time Temp Pulse Resp B/P (MAP) Pulse Ox O2 Delivery O2 Flow Rate FiO2 11/26/17 18:40 57 21 151/63 98 Room Air 11/26/17 18:30 60 18 144/94 100 Room Air 11/26/17 18:20 58 19 136/79 100 Oxymask 10 11/26/17 18:10 36.1 59 15 130/75 100 Oxymask 10 11/26/17 16:03 37 65 18 128/79 (95) 98 Room Air Notes Mental Status: alert / awake / arousable, participated in evaluation Pt Amnestic to Procedure: Yes Nausea / Vomiting: adequately controlled Pain: adequately controlled Airway Patency, RR, SpO2: stable & adequate BP & HR: stable & adequate Hydration State: stable & adequate Anesthetic Complications: no major complications apparent
[2017-11-26 19:00] VITALS: BP 143/74; PULSE 56; TEMP 37; O2SAT 97
[2017-11-26 19:35] VITALS: BP 133/64; PULSE 70; O2SAT 97
[2017-11-26 20:00] VITALS: BP 146/71; PULSE 65; O2SAT 99
== END | disposition home or self-care (01) ==
LOC: C.ACU 15:24
PROVIDERS: ATTEND Urology
DX: N20.0 Calculus of kidney (principal); Z91.018 Allergy to other foods; Z88.8 Allergy status to other drugs, medicaments and biological substances; Z79.899 Other long term (current) drug therapy; F17.200 Nicotine dependence, unspecified, uncomplicated